=== PATIENT | female | born 1950 | race Caucasian/White ===

== ENCOUNTER 2023-02-14 10:27 | Outpatient (CLI) | payer MEDICARE, SELFPAY ==
--- NOTE | 2023-02-14 10:34 | MM_ITS ---
WS: [id number] BILATERAL SCREENING DIGITAL TOMOSYNTHESIS MAMMOGRAM WITH CAD HISTORY: SCREENING COMPARISON: None available. Bilateral CC and MLO views with tomosynthesis and synthetic mammography submitted. Computer aided det ection analyzed. Breast composition: There are scattered areas of fibroglandular density. No suspicious masses, microc alcifications or architectural distortion. Benign calcification upper outer quadrant RIGHT breast. IMPRESSION: MM/[place] [id number] BI-RADS: 2-Benign FOLLOW UP: 1 Year Follow-up
== END 2023-02-14 10:28 | disposition home or self-care (01) ==
PROVIDERS: PCP Family Medicine; Visit Provider Family Medicine
DX: Z12.31 Encounter for screening mammogram for malignant neoplasm of breast (principal)
CPT/HCPCS: 77063; 77067

== ENCOUNTER 2025-02-04 09:53 | Emergency (ER) | payer MEDICARE, SELFPAY ==
--- NOTE | 2025-02-04 09:57 | XR_ITS ---
WS: [id number] Portable AP upright chest, 02/04/2025 Clinical Data: weakness Comparison: None. Findings: No nodules, masses or effusions are seen. The heart is normal. The pulmonary vascularity is not increased. No pneumonia or pneumothorax is seen. XR/XR chest 1V portable [id number] Impression: Negative chest.
--- NOTE | 2025-02-04 09:57 | CT_ITS ---
WS: [id number] CT HEAD TECHNIQUE: Noncontrast CT of the head obtained from the skullbase to the vertex. CLINICAL INFORMATION: weakness COMPARISON: None. DLP: 1086.[address] scans at [facility] use at least one of these dose optimization techniques: automated exposure control; mA and/or kV adjustment per patient size (includes targeted exams where dose is matched to clinical indication); or iterative reconstruction. FINDINGS: No evidence of intracranial hemorrhage or mass effect. Ventricular system and basal cisterns are patent. Mild small vessel changes with moderate parenchymal volume loss. No extra-axial fluid collections. No evidence of mass or mass effect. Vascular calcification Mild mucosal thickening in the ethmoid air cells. Mastoid air cells are well aerated. CT/CT head wo con* [id number] IMPRESSION: 1. No evidence of intracranial hemorrhage or mass effect. 2. No acute intracranial findings.
--- NOTE | 2025-02-04 09:58 | ECG_ITS ---
[facility] Test Date: 2022-02-13 Pat Name: Becki Montes De Oca Department: Room: Gender: Female [employer]: : 1950 Requested By: Melissa Bejarano Order Number: [id number] Shay MD: Ernestine Wilson M.D. Measurements Intervals [place] Rate: 88 P: 64 WY: 182 QRS: 0 QRSD: 81 T: 69 QT: 369 QTc: 447 Interpretive Statements SINUS RHYTHM LOW QRS VOLTAGE IN PRECORDIAL LEADS [QRS DEFLECTION < 1.0 mV IN CHEST LEADS] PATTERN CONSISTENT WITH PULMONARY DISEASE No previous ECG available for comparison Electronically Signed On 02-04-2025 15:26:24 CDT by Ernestine Wilson M.D. [email or web address]
--- OUTSIDE RECORDS SUMMARY | 2025-02-04 09:58 | XMS_ITS | Patient Health Record ---
Author Organization [facility] Address [address] [facility] [id number] [place], [place] [id number] Care Team Providers Care C.O.D. Clerk Name Role Phone ROWETASHA Primary Care Provider Allergies Allergen (clinical drug ingredient) Drug/Non Drug Allergy documented on EMR Reaction Allergy Type Onset Date Status Information temporarily unavailable Morphine Sulfate Unknown Drug Allergy Active Reason For Referral No Information Medications Medication SIG (Take, Route, Frequency, Duration) Notes Start Date End Date Status Lisinopril-hydroCHLOROthiaz barbara 20-12.5 MG 1 tablet Orally Once a day; Duration: 90 days Active amLODIPine Besylate 5 MG 1 tablet Orally Once a day; Duration: 90 days 06/07/2022 Active Antacid 750 MG 1 tablet Orally Once a day Active Multivitamin Adult - 1 tablet Orally Onc e a day Active Aspirin 81 MG 1 tablet Orally Once a day; Duration: 90 days Active Rosuvastatin Calcium 10 MG 1 tablet Oral ly Once a day; Duration: 90 days Active Meclizine HCl 25 MG 1 tablet as needed O rally TID PRN dizziness; Duration: 30 days Active Amitriptyline HCl 10 MG 1 tablet at bedt stefan Orally Once a day; Duration: 90 day(s) 07/10/2022 Active Acetaminophen 325 MG 1 tablet as needed Orally once a day in the evening for breakthrough pain Active Famotidine 20 MG 1 tablet as needed O rally Once a day; Duration: 90 day(s) 07/10/2022 Active Immunizations Vaccine Route Administration Date Status Comme nts *COVID19* Moderna Covid 19 0.5 Vial [id number] box [id number] Unknown 05/12/2020 Administered *COVID19* Moderna Covid 19 0.5 Vial [id number] box [id number] Unknown 06/12/2020 Administered *COVID19* Moderna Covid 19 0.5 Vial [id number] box [id number] Unknown 02/15/2021 Administered *COVID19* Moderna Covid 19 0.5 Vial [id number] box [id number] Unknown 08/17/2021 Administered *PVT* FLULAVAL QIV [id number] IM Intramuscular 01/19/2020 Administered *PVT* FLUZONE HIG DOSE 65 AND UP B [id number] V [id number] Unknown 01/31/2021 Administered *PVT* Pneumococcal adult Pneumovax 23 [id number] Unknown 03/18/2016 Administered *PVT* Prevnar 13 [id number] IM Intramuscular 10/28/2019 Administered Patient tolerated well. Inactive Unknown 01/21/2017 Administered Inactive Unknown 02/11/2018 Administered Social History Tobacco Use: Social History Observation Description Date Details (start date - stop date) Former Smoker NA - NA Tobacco Use: Question Answer Notes Are you a: former smoker How long has it been since y ou last smoked? > 10 years Additional Findings: Tobacco User Light cigarett e smoker ((1-9 cigs/day) Additional Findings: Tobacco Non-User Ex-light c igarette smoker (1-9/day) Sexual Hx: Question Answer Notes Had sex in the last 12 months (vaginal, oral, or anal)? No Have you ever had an STD? No Alcohol Screening: Question Answer Notes Did you have a drink containing alcohol in the p ast year? No Points 0 Interpretation Negative Section Notes: former smoker; no alcohol; n o travel former smoker; no alcohol; n o travel former smoker; no alcohol; n o travel former smoker; no alcohol; n o travel former smoker; no alcohol; n o travel former smoker; no alcohol; n o travel former smoker; no alcohol; n o travel former smoker; no alcohol; n o travel Problems Problem Type SNOMED Code ICD Code Onset Dates Problem Status W/U Status Risk Notes Problem Information temporarily unavailable Essential (primary) hypertension (I10) Active confirmed Problem Information temporarily unavailable Other obesity due to excess calories (E66.09) Active confirmed Problem Information temporarily unavailable Acquired absence of both cervix and uterus (Z90.710) Active confirmed Problem Information temporarily unavailable Other obesity (E66.8) Active confirmed Problem Information temporarily unavailable Gastro-esophageal reflux disease without esophagitis (K21.9) Active confirmed Problem Information temporarily unavailable Arthritis (M19.90) Active confirmed Problem Information temporarily unavailable Leukocytosis, unspecified (D72.829) Active confirmed Problem Information temporarily unavailable BMI 37.0-37.9, adult (Z68.37) Active confirmed Problem Information temporarily unavailable BMI 36.0-36.9,adult (Z68.36) Active confirmed Problem Information temporarily unavailable Other hyperlipidemia (E78.49) Active confirmed Plan Of Treatment No Information Insurance Providers Payer Name Payer Address Payer Phone Subscriber Number Group Number Insured Name Patient Relationship to Insured Coverage Start Date Coverage End Date [employer] MED[employer]ARE [address] [place] [phone] [id number] ANA AGUILERA Self - patient is the insured Medical (General) History Medical History History ICD Code Hypertension Hyperlipidemia Seasonal allergies Cervical cancer Surgical History Surgery Date(Month/Year) Tonsillectomy 1965 TOTAL HYSTERECTOMY 1988 Hospitalization History Reason Date(Month/Year) Surgery Above
--- OUTSIDE RECORDS SUMMARY | 2025-02-04 09:58 | XMS_ITS | Data Portability ---
Author Organization [facility] Raimundo Fontana [facility] Gunjan Coronado [facility] Address [address] [address] Assessment Encounter Date Assessment Date Assessment LastModified by Organization Details LastModified Time 01/27/2023 01/27/2023 We will proceed with lab work today. Discussed other preventative health care evaluations and will schedule the patient for mammogram and order the Cologuard. Claude healthy lifestyle including diet and exercise recommendations . Flu shot provided today. [email or web address] Not available 01/28/2023 08:42:59 03/10/2024 03/10/2024 no charge visit. Pt presented with broken dentures and wanted them fixed. directed pt to dental clinic. [email or web address] Not available 03/10/2024 09:30:50 11/29/2024 11/29/2024 We will check routine labs today [email or web address] Not available 12/05/2024 10:26:39 Plan of Treatment Reminders Order Date Submit Date Provider Last Modified By Organization Details Last Modified Time Details Appointments 15 ANNUAL 2025 08:00A Deloris Salinas MD Not available Not available Not available Lab CMP, serum or plasma 2024 025 MILTON [facility], [address], [address], [place], [address], 11/29/2024 13:45:15 lipid panel, blood 2024 025 [facility], [address] [facility] [address], [place], [address], 11/29/2024 13:45:18 CBC 2024 025 [facility], [address], [address], [place], [address], 11/29/2024 13:09:41 CMP, serum or plasma 2022 023 [facility], [address], [address], [place], [address], 01/27/2023 16:37:38 lipid panel, blood 2022 023 [facility], [address], [address], [place], [address], 01/27/2023 16:00:37 CBC 2022 023 [facility], [address], [address], [place], [address], 01/27/2023 15:20:18 noninvasi ve colorecta l cancer DNA + occult blood screening , QL, stool 2022 023 [facility], [address], [address], [place], [address], 02/10/2023 02:36:[address] referral 2023 024 [email or web address] Not available 04/23/2023 14:30:18 otolaryng ologist referral 2023 024 [email or web address] Chu Awad MD, [address], [place], [address], 05/07/2023 14:32:00 Procedures None recorded. Surgeries None recorded. Imaging MAMMO, screening , tomosynth esis, bilateral 2022 023 [facility] (Scheduling Orders), [address], [place], [address], 02/05/2023 15:42:44 Medication Orders omeprazol e 20 mg capsule,d elayed release [address] [facility] #[id number], [address], [address], [place], [address], 08/26/2023 11:38:50 Patient TargetsNo targets recorded. Patient InstructionsNo instructions recorded. 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 Referral fo r Bilateral tinnitus Referring Physician: Booker Salinas [facility] Medicine, Encounter Date: 04/21/2023 Results Created Date Observation Date Name Description Value Unit Range Abnormal Flag Note LastModifiedBy Organization Detail LastModifiedTime 01/28/2001/27/2023 CBC WBC 10.7 x10 4.0-10 .5 high Not Available [facility] [address] [address], [place], [address], 01/27/2023 15:20:18 01/28/2001/27/2023 CBC RBC 3.74 x10 3.50-5 .50 Not Available [facility] [address] [address], [place], [address], 01/27/2023 15:20:18 01/28/2001/27/2023 CBC HGB 11.4 g/dL 12.0-1 6.0 low Not Available [facility] [address], [place], [address], 01/27/2023 15:20:18 01/28/2001/27/2023 CBC HCT 33.1 % 37.0-4 7.0 low Not Available [facility] [address], [place], [address], 01/27/2023 15:20:18 01/28/2001/27/2023 CBC MCV 88.6 fL 80.0-9 9.9 Not Available [facility] [address] [facility] [address] [facility], [place], [address], 01/27/2023 15:20:18 01/28/20 23 01/27/2023 CBC MCH 30.5 pg 27.0-3 2.0 Not Available [facility] [address] [facility] [address] [facility], [place], [address], 01/27/2023 15:20:18 01/28/20 23 01/27/2023 CBC MCHC 34.5 g/dL 32.0-3 6.0 Not Available [facility] [address] [facility] [address] [facility], [place], [address], 01/27/2023 15:20:18 01/28/20 23 01/27/2023 CBC RDW 14.6 % 11.5-1 4.6 Not Available [facility] [address] [facility] [address] [facility], [place], [address], 01/27/2023 15:20:18 01/28/20 23 01/27/2023 CBC plt 371.0 x10 140.0- 451.0 Not Available [facility] [address] [facility] [address] [facility], [place], [address], 01/27/2023 15:20:18 01/28/2001/27/2023 CBC lymphocytes % 18.4 % 20.0-5 0.0 low Not Available [facility] [address] [facility], [place], [address], 01/27/2023 15:20:18 01/28/20 23 01/27/2023 CBC granulcytes % 72.3 % 30.0-7 0.0 high Not Available [facility] [address] [facility] [address] [facility], [place], [address], 01/27/2023 15:20:18 01/28/20 23 01/27/2023 CBC monocytes % 6.4 % 2.0-10 .0 Not Available [facility] [address] [facility] [address], [place], [address], 01/27/2023 15:20:18 01/28/20 23 01/27/2023 CBC granulcytes# 7.8 x10 Not Prabha ilable [facility] [address] [facility] [address], [place], [address], 01/27/2023 15:20:18 01/28/20 23 01/27/2023 CBC lymphocytes # 2.0 x10 Not Available [facility] [address] [facility] [address], [place], [address], 01/27/2023 15:20:18 01/28/20 23 01/27/2023 CBC monocytes # 0.7 x10 Not Avai lable [facility] [address] [facility] [address], [place], [address], 01/27/2023 15:20:18 01/28/20 23 01/27/2023 LIPID PROFI LE (FEMA LE) cholesterol 101.0 mg/dL 0.0-20 0.0 Not Available [facility] [address] [facility] [address], [place], [address], 01/27/2023 16:00:36 01/28/20 23 01/27/2023 LIPID PROFI LE (FEMA LE) trig 118.0 mg/dL 0.0-15 0.0 Not Available [facility] [address] [facility] [address], [place], [address], 01/27/2023 16:00:36 01/28/20 23 01/27/2023 LIPID PROFI LE (FEMA LE) HDL - direct 34.0 mg/dL >40.0 low Not Available [facility] [address] [facility] [address], [place], [address], 01/27/2023 16:00:36 01/28/20 23 01/27/2023 LIPID PROFI LE (FEMA LE) VLDL - direct 23.6 mg/dL Not Available [facility] [address] [facility] [address], [place], [address], 01/27/2023 16:00:36 01/28/20 23 01/27/2023 LIPID PROFI LE (FEMA LE) LDL - direct 43.4 mg/dL 0.0-13 0.0 Not Available [facility] [address] [facility] [address], [place], [address], 01/27/2023 16:00:36 01/28/20 23 01/27/2023 CMP (FEMA LE) glucose 118.0 mg/dL 60.0-9 9.0 high Not Available [facility] [address] [facility] [address], [place], [address], 01/27/2023 16:37:37 01/28/20 23 01/27/2023 CMP (FEMA LE) BUN (blood urea nitrogen) 8.0 mg/dL 10.0-2 6.0 low Not Available [facility] [address] [facility] [address], [place], [address], 01/27/2023 16:37:37 01/28/20 23 01/27/2023 CMP (FEMA LE) creatinine (serum) 0.9 mg/dL 0.4-1. 5 Not Available [facility] [address] [facility] [address], [place], [address], 01/27/2023 16:37:37 01/28/20 23 01/27/2023 CMP (FEMA LE) BUN/creatini ne ratio 8.89 ratio Not Available [facility] [address] [facility] [address], [place], [address], 01/27/2023 16:37:37 01/28/2001/27/2023 CMP (FEMA LE) eGFR calculated 65.4 Not Available [facility] [address] [facility] [address], [place], [address], 01/27/2023 16:37:37 01/28/2001/27/2023 CMP (FEMA LE) total protein 7.4 g/dL 6.0-8. 5 Not Available [facility] [address], [place], [address], 01/27/2023 16:37:37 01/28/2001/27/2023 CMP (FEMA LE) total bilirubin 0.5 mg/dL 0.2-1. 3 Not Available [facility] [address] [facility], [place], [address], 01/27/2023 16:37:37 01/28/2001/27/2023 CMP (FEMA LE) albumin 4.6 g/dL 3.5-5. 5 Not Available [facility] [address] [facility] [address] [facility], [place], [address], 01/27/2023 16:37:37 01/28/2001/27/2023 CMP (FEMA LE) globulin 2.8 calc Not Available [facility] [address] [facility], [place], [address], 01/27/2023 16:37:37 01/28/2001/27/2023 CMP (FEMA LE) AST (SGOT) 36.0 U/L 0.0-46 .0 Not Available [facility] [address] [facility] [facility], [place], [address], 01/27/2023 16:37:37 01/28/20 01/27/2023 CMP (FEMA LE) altv (SGPT) 21.0 U/L 13.0-6 9.0 normal Not Available [facility] [address] [facility] [address], [place], [address], 01/27/2023 16:37:37 01/28/20 23 01/27/2023 CMP (FEMA LE) A/G ratio 1.6 ratio Not Available [facility] [address] [facility] [address], [place], [address], 01/27/2023 16:37:37 01/28/2001/27/2023 CMP (FEMA LE) ALP phos 90.0 U/L 30.0-1 40.0 normal Not Available [facility] [address] [facility] [address], [place], [address], 01/27/2023 16:37:37 01/28/20 23 01/27/2023 CMP (FEMA LE) calcium 8.9 mg/dL 8.4-10 .5 Not Available [facility] [address] [facility] [address], [place], [address], 01/27/2023 16:37:37 01/28/20 23 01/27/2023 CMP (FEMA LE) sodium 129.0 mmol/ L 136.0- 145.0 low Not Available [facility] [address] [facility] [address], [place], [address], 01/27/2023 16:37:37 01/28/2001/27/2023 CMP (FEMA LE) potassium 4.1 mmol/ L 3.5-5. 1 Not Available [facility] [address] [facility] [address], [place], [address], 01/27/2023 16:37:37 01/28/20 23 01/27/2023 CMP (FEMA LE) chloride 93.0 mmol/ L 98.0-1 10.0 abnormal Not Available [facility] [address] [facility] [address], [place], [address], 01/27/2023 16:37:37 01/28/2001/27/2023 CMP (FEMA LE) C02 24.0 mmol/ L 22.0-3 1.0 Not Available [facility] [address] [facility] [address], [place], [address], 01/27/2023 16:37:37 01/28/2001/27/2023 CMP (FEMA LE) anion gap 12.0 calc Not Available [facility] [address] [facility] [address], [place], [address], 01/27/2023 16:37:37 01/28/2001/27/2023 CMP (FEMA LE) osmolality 266.6 calc Not Available [facility] [address] [facility] [address], [place], [address], 01/27/2023 16:37:37 02/04/2002/03/2023 COLOG UARD cologuard result reportable Negati ve negati ve normal NEGAT MANOLO TEST RESUL T. A negat manolo Colog uard resul t indic ates a low likel ihood that a color ectal cance r (CRC) or advan nahid adeno ma (anival omato us polyp s with more advan nahid pre-m align ant featu res) is prese nt. The chanc e that a perso n with a negat manolo Colog uard test has a color ectal cance r is less than 1 in 1500 (nega tive predi ctive value >99.9 %) or has an advan nahid adeno ma is less than 5.3% (nega tive predi ctive value 94.7% ). These data are based on a prosp ectiv e cross -sect ional study of 10,00 0 indiv idual s at [facility] risk for color ectal cance r who were scree kirk with both Colog uard and colon oscop y. (Kaileye jaylan T. et al, N Engl J Med 2014; 370(1 4):12 86-12 97) The yang l value (refe rence range ) for this assay is negat manolo. COLOG UARD RE-SC REENI NG RECOM MENDA TION: Perio dic color ectal cance r scree maximilian is an impor tant part of preve ntive healt hcare for asymp tomat ic indiv idual s at [facility] risk for color ectal cance r. Follo wing a negat manolo Colog uard resul t, the Ameri can Cance r Socie ty and U.S. Multi -Soci ety Task Force scree maximilian guide lines recom mend a Colog uard re-sc reeni ng inter daniel of 3 years . Refer ences : Ameri can Cance r Socie ty Guide line for Color ectal Cance r Scree maximilian: https ://geneva w.can cer.o rg/ca ncer/ colon -rect al-ca ncer/ detec tion- diagn osis- stagi ng/ac s-rec ommen datio ns.ht ml.; Sander ZAMBRANO, Froylan gomes CR, Reyna WATERMAN, Color ectal Cance r Scree maximilian: Recom menda tions for Physi cians and Patie nts from the U.S. Multi -Soci ety Task Force on Color ectal Cance r Scree maximilian , Am Carlito ayala y 2017; 112:1 016-1 030. TEST DESCR IPTIO N: [place] site algor ithmi c yayo sis of stool DNA-b iomar kers with hemog lobin immun oassa y. Quant itati ve value s of indiv idual bioma rkers are not repor table and are not assoc iated with indiv idual bioma rker resul t refer ence range s. Colog uard is inten ded for color ectal cance r scree maximilian of adult s of eithe r sex, 45 years or older , who are at [facility] sk for color ectal cance r (CRC) . Colog uard has been appro lawrence for use by the [place]. FDA. The perfo rmanc e of Colog uard was estab lishe d in a cross secti onal study of [facility] adult s aged 50-84 . Colog uard perfo rmanc e in patie nts ages 45 to 49 years was estim ated by sub-g roup yayo sis of near- age group s. Colon oscop ies perfo rmed for a posit manolo resul t may find as the most clini naina signi fican t lesio n: color ectal cance r [4.0% ], advan nahid adeno ma (incl uding sessi le catie salvador polyp s great er than or equal to 1cm diame ter) [20%] or non- advan nahid adeno ma [31%] ; or no color ectal neopl finesse [45%] . These estim ates are deriv ed from a prosp ectiv e cross -sect ional scree maximilian study of 0 indiv idual s at [facility] risk for color ectal cance r who were scree kirk with both Colog uard and colon oscop y. (Thelma Crane et al, N Engl J Med 2014; 370(1 4):12 86-12 97.) Colog uard may produ ce a false negat manolo or false posit manolo resul t (no color ectal cance r or preca ncero us polyp prese nt at colon oscop y follo w up). A negat manolo Colog uard test resul t does not guara ntee the absen ce of CRC or advan nahid adeno ma (pre- cance r). The curre nt Colog uard scree maximilian inter daniel is every 3 years . (Amer ican Cance r Socie ty and U.S. Multi -Soci ety Task Force ). Colog uard perfo rmanc e data in a 0 patie nt pivot al study using colon oscop y as the refer ence metho d can be acces sed at the follo wing locat ion: www.e xactl abs.c om/re sulchris . Addit ional descr iptio n of the Colog uard test proce ss, warni ngs and preca ution s can be found at www.maryjane morales.maryjane om. Not Available [facility] [address], [place], [address], 02/10/2023 02:36:25 11/30/19 25 11/29/2024 CBC WBC 10.0 x10 4.0-10 .5 Not Available [facility] [address] [facility] [address], [place], [address], 11/29/2024 13:09:41 11/30/19 25 11/29/2024 CBC RBC 3.90 x10 3.50-5 .50 Not Available [facility] [address] [facility] [address] [facility], [place], [address], 11/29/2024 13:09:41 11/30/19 25 11/29/2024 CBC HGB 11.4 g/dL 12.0-1 6.0 low Not Available [facility] [address] [facility] [address] [facility], [place], [address], 11/29/2024 13:09:41 11/30/19 25 11/29/2024 CBC HCT 35.8 % 37.0-4 7.0 low Not Available [facility] [address] [facility] [address] [facility], [place], [address], 11/29/2024 13:09:41 11/30/19 25 11/29/2024 CBC MCV 91.7 fL 80.0-9 9.9 Not Available [facility] [address] [facility] [address] [facility], [place], [address], 11/29/2024 13:09:41 11/30/19 25 11/29/2024 CBC MCH 29.3 pg 27.0-3 2.0 Not Available [facility] [address] [facility] [address] [facility], [place], [address], 11/29/2024 13:09:41 11/30/19 25 11/29/2024 CBC MCHC 32.0 g/dL 32.0-3 6.0 Not Available [facility] [address] [facility] [address] [facility], [place], [address], 11/29/2024 13:09:41 11/30/19 25 11/29/2024 CBC RDW 14.4 % 11.5-1 4.5 Not Available [facility] [address] [facility] [address] [facility], [place], [address], 11/29/2024 13:09:41 11/30/19 25 11/29/2024 CBC plt 395.2 x10 140.0- 451.0 Not Available [facility] [address] [facility], [place], [address], 11/29/2024 13:09:41 11/30/19 25 11/29/2024 CBC lymphocytes % 17.5 % 20.0-5 0.0 low Not Available [facility] [address] [facility], [place], [address], 11/29/2024 13:09:41 11/30/19 25 11/29/2024 CBC granulcytes % 73.9 % 30.0-7 0.0 high Not Available [facility] [address] [facility], [place], [address], 11/29/2024 13:09:41 11/30/19 25 11/29/2024 CBC monocytes % 7.0 % 2.0-16 .0 Not Available [facility] [address] [facility], [place], [address], 11/29/2024 13:09:41 11/30/19 25 11/29/2024 CBC granulcytes# 7.4 x10 Not Prabha ilable [facility] [address] [facility] [address], [place], [address], 11/29/2024 13:09:41 11/30/19 25 11/29/2024 CBC lymphocytes # 1.7 x10 Not Available [facility] [address] [facility] [address], [place], [address], 11/29/2024 13:09:41 11/30/19 25 11/29/2024 CBC monocytes # 0.7 x10 Not Avai lable [facility] [address] [facility], [place], [address], 11/29/2024 13:09:41 11/30/19 25 11/29/2024 CMP (FEMA LE) glucose 105.0 mg/dL 60.0-9 9.0 high Not Available [facility] [address] [facility] [address] [address], [place], [address], 11/29/2024 13:45:15 11/30/19 25 11/29/2024 CMP (FEMA LE) BUN (blood urea nitrogen) 17.0 mg/dL 10.0-2 6.0 Not Available [facility] [address] [address], [place], [address], 11/29/2024 13:45:15 11/30/19 25 11/29/2024 CMP (FEMA LE) creatinine (serum) 1.1 mg/dL 0.4-1. 5 Not Available [facility] [address] [address], [place], [address], 11/29/2024 13:45:15 11/30/19 25 11/29/2024 CMP (FEMA LE) BUN/creatini ne ratio 15.45 ratio Not Available [facility] [address] [address], [place], [address], 11/29/2024 13:45:15 11/30/19 25 11/29/2024 CMP (FEMA LE) eGFR calculated 51.6 Not Available [facility] [address] [facility], [place], [address], 11/29/2024 13:45:15 11/30/19 25 11/29/2024 CMP (FEMA LE) total protein 7.0 g/dL 6.0-8. 5 Not Available [facility] [address] [facility], [place], [address], 11/29/2024 13:45:15 11/30/19 25 11/29/2024 CMP (FEMA LE) total bilirubin 0.5 mg/dL 0.2-1. 3 Not Available [facility] [address] [facility] [address], [place], [address], 11/29/2024 13:45:15 11/30/19 25 11/29/2024 CMP (FEMA LE) albumin 3.8 g/dL 3.5-5. 5 Not Available [facility] [address] [facility] [address], [place], [address], 11/29/2024 13:45:15 11/30/19 25 11/29/2024 CMP (FEMA LE) globulin 3.2 calc Not Available [facility] [address] [facility], [place], [address], 11/29/2024 13:45:15 11/30/19 25 11/29/2024 CMP (FEMA LE) AST (SGOT) 40.0 U/L 0.0-46 .0 Not Available [facility] [address] [facility] [address], [place], [address], 11/29/2024 13:45:15 11/30/19 25 11/29/2024 CMP (FEMA LE) altv (SGPT) 22.0 U/L 13.0-6 9.0 normal Not Available [facility] [address] [facility] [address] [facility], [place], [address], 11/29/2024 13:45:15 11/30/19 25 11/29/2024 CMP (FEMA LE) A/G ratio 1.2 ratio Not Available [facility] [address] [facility] [address], [place], [address], 11/29/2024 13:45:15 11/30/19 25 11/29/2024 CMP (FEMA LE) ALP phos 121.0 U/L 30.0-1 40.0 normal Not Available [facility] [address] [facility], [place], [address], 11/29/2024 13:45:15 11/30/19 25 11/29/2024 CMP (FEMA LE) calcium 9.0 mg/dL 8.4-10 .5 Not Available [facility] [address] [facility] [address], [place], [address], 11/29/2024 13:45:15 11/30/19 25 11/29/2024 CMP (FEMA LE) sodium 136.0 mmol/ L 136.0- 145.0 Not Available [facility] [address] [facility] [address], [place], [address], 11/29/2024 13:45:15 11/30/19 25 11/29/2024 CMP (FEMA LE) potassium 4.1 mmol/ L 3.5-5. 1 Not Available [facility] [address] [facility] [address], [place], [address], 11/29/2024 13:45:15 11/30/19 25 11/29/2024 CMP (FEMA LE) chloride 100.0 mmol/ L 98.0-1 10.0 normal Not Available [facility] [address] [facility], [place], [address], 11/29/2024 13:45:15 11/30/19 25 11/29/2024 CMP (FEMA LE) C02 28.0 mmol/ L 22.0-3 1.0 Not Available [facility] [address] [facility], [place], [address], 11/29/2024 13:45:15 11/30/19 25 11/29/2024 CMP (FEMA LE) anion gap 8.0 calc Not Available [facility] [address] [facility] [address], [place], [address], 11/29/2024 13:45:15 11/30/19 25 11/29/2024 CMP (FEMA LE) osmolality 282.9 calc Not Available [facility] [address] [facility] [address], [place], [address], 11/29/2024 13:45:15 11/30/19 25 11/29/2024 LIPID PROFI LE (FEMA LE) cholesterol 133.0 mg/dL 0.0-20 0.0 Not Available [facility] [address] [facility] [address], [place], [address], 11/29/2024 13:45:18 11/30/19 25 11/29/2024 LIPID PROFI LE (FEMA LE) trig 103.0 mg/dL 0.0-15 0.0 Not Available [facility] [address] [facility] [address], [place], [address], 11/29/2024 13:45:18 11/30/19 25 11/29/2024 LIPID PROFI LE (FEMA LE) HDL - direct 52.0 mg/dL >40.0 Not Available [facility] [address] [facility] [address], [place], [address], 11/29/2024 13:45:18 11/30/19 25 11/29/2024 LIPID PROFI LE (FEMA LE) VLDL - direct 20.6 mg/dL Not Available [facility] [address], [place], [address], 11/29/2024 13:45:18 11/30/19 25 11/29/2024 LIPID PROFI LE (FEMA LE) LDL - direct 60.4 mg/dL 0.0-13 0.0 Not Available [facility] [address], [place], [address], 11/29/2024 13:45:18 02/15/20 23 02/14/2023 MAMMO , scree maximilian, tomos ynthe sis, bilat eral No observ ation record ed. [facility] [address] [place], [address], 02/17/2023 09:11:43 Result Notes None recorded. Problems Name Problem SNOMED Code Status Onset Date Resolution Date Notes Provider Name and Address Organization Details Recorded Time Essential hypertensi on 88579666 Active 2022 Not Available [facility] 4 08:46:13 Hyperchole sterolemia 23214768 Active 2023 Not Available [facility] 08:46:13 Bilateral tinnitus 9485804262035 Active 2023 Not Available [facility] 4 08:46:13 Gastroesop hageal reflux disease 092098793 Active 2023 Booker Salinas MD [address] [place], [address] , [facility] 4 11:34:35 Disorder of cardiovasc ular system 83394971 Active 2024 Booker Salinas MD [address] [place], [address] , [facility] 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 Procedures Surgical History Date Name Laterality Status Provider Name and Address Organization Details Recorded Time 06/10/19 [facility] 14:14[facility]45 [facility] 14:02:27 [facility] 14:02:42 Imaging Results None recorded. Procedure Notes None recorded. Medical Equipment None Reported. Allergies No known drug allergies Medications Name Sig Start Date Stop Date Status Note LastModified by Organization Details LastModified Time lisinopril 20 mg-hydrochlo rothiazide 12.5 mg tablet TAKE 1 TABLET BY MOUTH EVERY DAY active Not Available Not Available No t Available meloxicam 15 mg tablet TAKE 1 TABLET BY MOUTH EVERY DAY 2024 active Not Available Not Available Not Avai lable omeprazole 20 mg capsule,jacque yed release TAKE 1 CAPSULE BY MOUTH EVERY DAY active Not Available Not Available No t Available Low Dose Aspirin 81 mg tablet,delay ed release Take 1 tablet every day by oral route. active Not Available Not Available No t Available rosuvastatin 10 mg tablet TAKE 1 TABLET BY MOUTH EVERY DAY 2024 active Not Available Not Available Not Avai lable One-A-Day Womens Formula 18 mg iron-400 mcg-500 mg tablet Take 1 tablet every day by oral route. active Not Available Not Available No t Available ICaps AREDS2 take 2 tabs every day 08/25 completed Not Available Not Available Not Available Vitals Date Recorded Respiratory rate Body height Body mass index (BMI) Body weight Body temperature Heart rate Oxygen saturation Oxygen saturation in Arterial blood by Pulse oximetry Systolic And Diastolic Provider Name and Address Organization Details Last Updated DateTime 4 20 /min 154.94 cm 34.1 kg/m2 36931.0 3 g 97.4 [degF] 86 /min 98 % 98 % 150/86 mm[Hg] DIANA MARTELL [facility] 4 10:20:34 Date Recorded Body height Respiratory rate Body mass index (BMI) Body weight Body temperature Heart rate Oxygen saturation Oxygen saturation in Arterial blood by Pulse oximetry Systolic And Diastolic Provider Name and Address Organization Details Last Updated DateTime 4 154.94 cm 20 /min 32.9 kg/m2 45634.0 7 g 97 [degF] 72 /min 94 % 94 % 120/70 mm[Hg] DIANA MARTELL [facility]el 4 11:13:19 Date Recorded Body height Body mass index (BMI) Body weight Oxygen saturation Oxygen saturation in Arterial blood by Pulse oximetry Heart rate Respiratory rate Body temperature Systolic And Diastolic Provider Name and Address Organization Details Last Updated DateTime 5 154.94 cm 32.1 kg/m2 50613.9 8 g 99 % 99 % 99 /min 18 /min 96.9 [degF] 106/60 mm[Hg] Lita Rosendo [facility]anel 5 10:50:37 Date Recorded Respiratory rate Body temperature Heart rate Oxygen saturation Oxygen saturation in Arterial blood by Pulse oximetry Systolic And Diastolic Provider Name and Address Organization Details Last Updated DateTime 3 20 /min 97.5 [degF] 72 /min 99 % 99 % 120/82 mm[Hg] DIANA MARTELL [facility]el 3 14:02:15 Social History Question Answer Notes LastModified by Organizat ion Details LastModified Time Tobacco Smoking Status Former Smoker DIANA shaffer [facility] 01/27/2023 14:03:52 Do You Have An Advance Directive? No Information not available 01/27/2023 Do You Wear A Helmet When Biking? No Information not available 01/27/2023 Are You Blind Or Do You Have Difficulty Seeing? No Information not available 01/27/2023 What Is Your Level Of Caffeine Consumption? Moderate Information not available 01/27/2023 Are You Deaf Or Do You Have Serious Difficulty Hearing? No Information not available 01/27/2023 What Type Of Diet Are You Following? REGULAR Information not available 01/27/2023 What Is The Highest Grade Or Level Of School You Have Completed Or The Highest Degree You Have Received? [id number] Information not available 01/27/2023 When Did You Quit Smoking? 16+yearssince theodore [id number] Information not available 11/29/2024 Which Of Your Hands Is Dominant? Right Information not available 01/27/2023 Do You Use Your Seat Belt Or Car Seat Routinely? Yes Information not available 01/27/2023 Do You Participate In Social Media? No Information not available 01/27/2023 Have You Recently Traveled Abroad? No Information not available 01/27/2023 Do You Have Difficulty Walking Or Climbing Stairs? No Information not available 01/27/2023 Are You Currently In School? No Information not available 01/27/2023 Do You Have Any Dietary Restrictions? No Information not available 01/27/2023 Sex: Unknown Functional Status Question Answer Note LastModified by Organizat ion Details LastModified Time Do you use any illicit or recreational drugs? No Information not available 01/27/2023 What is your level of alcohol consumption? None Information not available 01/27/2023 Are you currently employed? No Information not available 01/27/2023 Do you have transportation difficulties? Yes Information not available 01/27/2023 Are you able to walk independently without assistance or assistive devices? YESWOREST Information not available 01/27/2023 Do you have difficulty doing errands alone? No Information not available 01/27/2023 Are you able to care for yourself independently? Yes Information not available 01/27/2023 Do you have difficulty dressing, bathing, grooming, or toileting? No Information not available 01/27/2023 What is your exercise level? None Information not available 01/27/2023 Mental Status Question Answer Note LastModified by Organization D etails LastModified Time Do you have difficulty concentrating, remembering or making decisions? No Information no t available 01/27/2023 Family History Nothing Reported. Medical History No medical history recorded. Gynecological HistoryNo gynecological history recorded. Obstetrics History GPAL:G 0 P 0 0 0 0 Immunizations Vaccine Type Date Status Note Provider Nam e and Address Organization Details Recorded Time COVID-19, mRNA, LNP-S, PF, 50 mcg/0.5 mL 02/18/2023 completed Not Available [facility] 5 10:15:57 Influenza, adjuvanted, quadrivalent, PF 02/18/2023 completed Not Available [facility] 5 10:15:57 RSV, recombinant, protein subunit RSVpreF, adjuvant reconstituted, 0.5 mL, PF 04/25/2023 completed Not Available [facility] 5 10:15:57 COVID-19, mRNA, LNP-S, PF, 50 mcg/0.5 mL 12/26/2023 completed Not Available [facility] 5 10:15:57 Influenza, adjuvanted, quadrivalent, PF 01/27/2023 completed Booker Salinas MD [address] [place] [address], [phone], [facility] 01/28/2023 08:41:18 Past Encounters Encounter ID Performer Location Encounter Start Date Encounter Closed Date Diagnosis/Indication Diagnosis SNOMED-CT Code Diagnosis ICD10 Code Diagnosis IMO Codes Diagnosis Note [id number] Booker Salinas MD [facility] ([facility]) [address] [place] [phone] 01/27/2023 13:36:53 01/27/2023 15:32:42 Active or passive immunization 802162110 Z23 Screening for malignant neoplasm of breast 111764042 Z12.39 Screening for malignant neoplasm of colon 048667920 Z12.11 Essential hypertension 50563765 I10 Adult heal th examination 027949823 Z00.00 [id number] Booker Salinas MD [facility] ([facility]) [address] [place] [id number] 04/21/2023 10:04:34 04/21/2023 12:12:50 Bilateral tinnitus 5684667915 102 H93.13 likely related to hearing loss. We will send referral to audiology and ENT giving her overall concerns. Essential hypertension 92213945 I10 Hypercholesterolemia 136 69163 E78.00 [id number] Booker Salinas MD [facility] ([facility]) [address] [place] [id number] 08/26/2023 11:02:56 08/26/2023 11:51:05 Gastroesophageal reflux disease 486321731 K21.9 Reflux may be contributi ng to the patient's symptoms. Recommend starting daily medication to help control symptoms better. Follow-up if symptoms do not improve. Bilateral tinnitus 40252 31271 102 H93.13 No improvemen t with hearing aids. No obvious medication s that would be contributi ng to the patient's symptoms. Encouraged the patient to bring the issue up with ENT at follow-up next week. [id number] ANATOLIY BOCANEGRA [facility] ([facility]) [address] [place] [phone] 03/10/2024 09:23:28 03/10/2024 09:31:03 [id number] Booker Salinas MD [facility] ([facility]) [address] [place] [phone] 11/29/2024 10:14:07 11/29/2024 11:40:47 Gastroesophageal reflux disease 217235455 K21.9 Continue omeprazole Memory impairment 504990 006 R41.3 069118 Slums test performed today and she scored a 14 and this is consistent with dementia. Screening for cardiovascular system disease 117824796 Z13.6 340568 Essential hypertension 49557217 I10 Continue current blood pressure management . Hypercholesterolemia 136 33793 E78.00 Tolerating statin. 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 Discussed interventi ons including medication s and they did not wish to risk the side effects. Education and guidance provided about the diagnosis. Health Concerns Section Related Observation LastModified by Organization Detai ls LastModified Time None Recorded Concern Status LastModified by Organization Details LastModified Time None Recorded Advance Directives Directive N: Payers Insurance Date Sequence Insurance Name Policy Number Policy [place] Covered Member ID [place] Member ID Guarantor Name 12/06/2024 1 DANNI (MEDICARE REPLACEMENT/A DVANTAGE - PPO) Becki Montes De Oca [id number] Becki Montes De Oca Notes Date Note Type Note Provider Name and Address Organization Details Recorded Time 01/27/2023 text/html This is a 72-year-old female that comes in today to establish care. Patient has a history of high blood pressure that is currently controlled on current medications. His cholesterol has been elevated in the past and she takes Crestor for this. Hinojosa patient has a history of osteoarthritis and takes as needed meloxicam. Patient states has been over a year since he has had lab work and health maintenance exam. Patient is overdue for mammogram and states that it is time for her Cologuard. Booker Salinas MD [address] [place] [address], [phone], [facility] 01/28/2023 08:43:30 04/21/2023 text/html ROS as noted in the HPI This is a 72-year-old female that comes in today with ringing in both her ears. Has had some mild hearing loss. Patient denies any other symptoms. Patient has not had any headaches or vision changes. Patient denies any focal neurological deficits. Patient does report that she has been having drooling issues Booker Salinas MD [address] [place] [address], [phone], [facility] 04/22/2023 09:41:32 08/26/2023 text/html Is a 72-year-old female that comes in today for evaluation. Patient states that she has been having increased burning and is utilizing Tums almost daily. Send the patient was also noticed increased drooling especially at night. Patient continues to struggle with tinnitus despite hearing aids. Patient does have follow-up with ENT next week. Booker Salinas MD [address] [place] [address], [phone], [facility], LShanelLErin. 08/26/2023 12:03:44 11/29/2024 text/html Annual WellnessReported by PatientSocial/Behavior al HistoryFor fracture risk, patient reportsno history of fractures. For physical activity, patient reportsexercises on a regular basisandgood physical condition. For additional lifestyle factors, patient reportsno tobacco useandno alcohol intake. For diet and nutrition, (a lot of processed food and dr. lewis).Mental Status:For depression risk, patient reportssleep disturbances or insomniaandloss of energybut reportsnever feels sad, empty, or tearful,no loss of interest in activities,no significant changes in weight,no agitation,no feelings of worthlessness or guilt,no thoughts of suicide,no history of depression, andno history of mood disorders(trouble falling to sleep).Functional AbilityFor hearing, (wears hearing aids). For vision, (wears glasses). This is a 74-year-old female comes in today for annual physical. Patient reports that her health is doing well and she is tolerating medications without significant side effects. Her son comes in today with her and expresses significant concerns with her memory. The patient has gotten lost in common areas. The son has significant concerns about dementia and would like her tested today. Booker Salinas MD [address] [place] [address], [phone], [facility] 12/05/2024 10:27:28 OBGyn Episode No OBEpisode recorded.
--- OUTSIDE RECORDS SUMMARY | 2025-02-04 09:58 | XMS_ITS | Patient Health Record ---
Author Organization [facility] Billing Info Address [address] [place] [id number] Care Team Providers Care Adventure Challenge Instructor Name Role Phone TASHA ROWE Unavailable [phone] Allergies Allergen (clinical drug ingredient) Drug/Non Drug Allergy documented on EMR Reaction Allergy Type Onset Date Status Information temporarily unavailable Morphine Sulfate Unknown Drug Allergy Active Reason For Referral No Information Medications Medication SIG (Take, Route, Frequency, Duration) Notes Start Date End Date Status Lisinopril-Hydrochlorothia zide 20-12.5 MG 1/2 TABLET ONCE A DAY ORALLY 90 DAYS for 90 Active Immune Enhance - Orally Act marysol Aspir-81 81 MG 1 tablet Orally Daily Active [place]oul 3 1000 MG 1 capsule Orally Onc e a day for 30 day(s) Active Vitamin D-3 5000 UNIT as directed Orally once daily Active TURMERIC 1 tab Oral Active Charles Seed as directed Orally A ctive Immunizations Vaccine Route Administration Date Status Comme nts PNEUMOCOCCAL - 23 POLY (PNEUMOVAX 23) IM Intramuscular 03/18/2016 Administered zFLU 4V (FLUZONE QUAD), 3 YRS+, NO PRES - ALL PAYORS IM Intramuscular 01/21/2017 Administered zFLU 4V (FLUZONE QUAD), 3 YRS+, NO PRES - ALL PAYORS IM Intramuscular 02/11/2018 Administered Problems Problem Type SNOMED Code ICD Code Onset Dates Problem Status W/U Status Risk Notes Problem Information temporarily unavailable Unspecified venous (peripheral) insufficiency (459.81) Active confirmed Problem 422726033 Encounter for immunization (Z23) Active confirmed Problem 267182387 Osteoarthritis (715.90) Active confir med Problem 6528786 Essential hypert ension, benign (I10) Active confirmed Problem 574039474 Pure hypercholesterolemia (E78.00) Active confirmed Plan Of Treatment No Information Insurance Providers Payer Name Payer Address Payer Phone Subscriber Number Group Number Insured Name Patient Relationship to Insured Coverage Start Date Coverage End Date [place] [address] [place] [address] [address] [place], [place] [id number] Becki Montes De Oca Self - patient is the insured 7 Medical (General) History Medical History History ICD Code HTN Hypercholesterol OA Venous Insuff Surgical History Surgery Date(Month/Year) SCOT/BSO due to remote uterine cancer tonsillectomy
--- NOTE | 2025-02-04 10:11 | W.ED.FALL ---
HPI - Fall General: Chief Complaint: Fall Stated Complaint: multiple falls Source: patient and EMS Mode of arrival: EMS Limitations: no limitations History of Present Illness: 74-year-old female states she has had some generalized weakness over the last 3 days states she has had 3 falls over the last 3 days as well. States she does walk with a cane but is felt weak and has fallen like she is walking a cane. She denies any injuries from the fall besides having some slight knee pain does have an abrasion to her head but does not member hitting her head. She denies any chest pain denies any abdominal pain. Related Data Previous Rx's ?Medication ?Instructions ?Recorded cephalexin 500 mg capsule 500 mg PO TID 7 days #21 caps 02/04/25 Allergies Allergy/AdvReac Type Severity Reaction Status Date / Time No Known Allergies Allergy Verified 02/04/25 10:29 Review of Systems Const: Reports: fatigue Physical Exam Const: COMMON NORMALS: patient oriented x3 HENMT: COMMON NORMALS: normocephalic HEAD & SCALP: normocephalic OTHER: abrasion to forehead Eye: COMMON NORMALS: Equal, round and reactive pupils present and EOMs intact bilaterally PUPIL: Yes Equal, round and reactive pupils present Neck/C-Spine: COMMON NORMALS: full ROM and supple Chest: COMMONS NORMALS: normal inspection of the chest and normal palpation of entire chest wall Resp: COMMON NORMALS: normal respiratory effort, No retractions, No use of accessory muscles and clear to auscultation bilaterally AUSCULTATION: clear to auscultation bilaterally Cardio: COMMON NORMALS: regular rate, regular rhythm and No murmurs present (Cardio) RATE: regular rate RHYTHM: regular rhythm GI: COMMON NORMALS: Normal to inspection, nondistended, normoactive bowel sounds present, Soft to palpation, non-tender and no masses PALPATION: Yes Soft to palpation Extremity: COMMON NORMALS: normal to inspection and full ROM Neuro: COMMON NORMALS: patient oriented x3, moves all extremities and no focal motor deficits Psych: COMMON NORMALS: mental status grossly normal, Normal thought process present and cooperative THOUGHT PROCESS: Normal thought process present Skin: COMMON NORMALS: no rashes or lesions noted and no wounds GENERAL SKIN EXAM: no rashes or lesions noted Course Vital Signs: Vital signs: Vital Signs Pulse Rate 87 02/04/25 10:30 Blood Pressure 121/56 02/04/25 11:46 Pulse Oximetry 97 02/04/25 11:46 Oxygen Delivery Me thod Room Air 02/04/25 11:46 MDM - Fall Medical Decision Making Patient presents here with some mild weakness has had 3 falls over the last 3 days. Differential includes infection, stroke. Head CT here was normal she has no focal deficits no signs of a stroke here. Patient was able to ambulate here with a walker without any difficulty. Blood work including white count here is normal. She did have a UTI could be causing some of her weakness. Did give her Rocephin here we will prescribe her Keflex for home did put in a DME order for a walker and informed her she needs to use a walker she is return if worsening she understands agrees to plan. I did go over all her labs and imaging and EKG EKG here showed normal sinus rhythm heart rate [address] elevation QRS 81 QTc 4 and 4 Medical Records I reviewed the patient's medical records. Lab Data I reviewed the patient's lab results. 02/04/25 10:27 02/04/25 10:27 Radiology Impressions Chest X-Ray 02/04/25 09:57 Impression: Negative chest. Head CT 02/04/25 09:57 IMPRESSION: 1. No evidence of intracranial hemorrhage or mass effect. 2. No acute intracranial findings. Laboratory Results WBC 12.98 10^3/uL (3.29-11.43) H 02/04/25 10: RBC 4.11 10^6/uL (3.85-5.65) 02/04/25 10:27 Hgb 11.80 g/dL (11.27-16.99) 02/04/25 10:27 Hct 34.6 % (36-47) L 02/04/25 10:27 MCV 84.2 fl (85-98) L 02/04/25 10:27 MCH 28.7 pg (27-33) 02/04/25 10: MCHC 34.1 g/dL (30-55) 02/04/25 10:27 RDW 12.8 % (12.1-15.1) 02/04/25 10: Plt Count 354 10^3/cmm (157-399) 02/04/25 10: MPV 8.4 fL (7.4-10.4) 02/04/25 10:27 Neut % (Auto) 85.6 % 02/04/25 10:27 Lymph % (Auto) 8.6 % 02/04/25 10:27 [place] % (Auto) 4.5 % 02/04/25 10:27 Eos % (Auto) 0.4 % 02/04/25 10:27 Baso % (Auto) 0.4 % 02/04/25 10:27 Neut # (Auto) 11.11 10^3/uL (1.8-7.7) H 02/04/25 10:27 Lymph # (Auto) 1.1 10^3/uL (0.8-4.8) 02/04/25 10:27 [place] # (Auto) 0.6 10^3/uL (0.2-0.9) 02/04/25 10:27 Eos # (Auto) 0.1 10^3/uL (0.0-0.8) 02/04/25 10:27 Baso # (Auto) 0.1 10^3/uL (0.0-0.1) 02/04/25 10:27 Nucleated RBC % (auto) 0 % 02/04/25 10: Nucleated RBCs # 0.0 /100WBC 02/04/25 10:27 Sodium 124 mmol/L (136-145) L 02/04/25 10:27 Potassium 4.2 mmol/L (3.5-5.1) 02/04/25 10: Chloride 87 mmol/L (98-107) L 02/04/25 10:27 Carbon Dioxide 24 mmol/L (22-29) 02/04/25 10:27 Anion Gap 17.2 (5-19) 02/04/25 10:27 BUN 13 mg/dL (8-23) 02/04/25 10:27 Creatinine 0.8 mg/dL (0.5-0.9) 02/04/25 10:27 GFR Calculation Not Reportable 02/04/25 10:27 Glucose 93 mg/dL (65-115) 02/04/25 10:27 Calculated Osmolality 258 mOsm/kg (285-295) L 02/04/25 10:27 Calcium 9.4 mg/dL (8.5-10.5) 02/04/25 10:27 Magnesium 1.7 mg/dL (1.7-2.3) 02/04/25 10: Total Bilirubin 0.5 mg/dL (0.15-1.2) 02/04/25 10: AST 38 U/L (0-32) H 02/04/25 10: ALT 21 U/L (0-33) 02/04/25 10: Alkaline Phosphatase 123 U/L (35-105) H 02/04/25 10: Total Protein 6.7 g/dL (6.6-8.7) 02/04/25 10: Albumin 3.8 g/dL (3.5-5.2) 02/04/25 10: Globulin 2.9 g/dL (1.3-4.6) 02/04/25 10: TSH 1.00 uIU/mL (0.27-4.20) 02/04/25 10: Urine Color [place] (Yellow) A 02/04/25 11:37 Urine Appearance Cloudy (CLEAR) A 02/04/25 11:37 Urine pH 5.5 (5-7) 02/04/25 11:37 Ur Specific [place] 1.012 (1.005-1.030) 02/04/25 11:37 Urine Protein Negative (Negative) 02/04/25 11:37 Urine Glucose (UA) Negative (Normal) 02/04/25 11:37 Urine Ketones Trace (Negative) 02/04/25 11:37 Urine Blood Negative (Negative) 02/04/25 11:37 Urine Nitrate Positive (Negative) A 02/04/25 11:37 Urine Bilirubin Negative (Negative) 02/04/25 11:37 Urine Urobilinogen 1.0 mg/dL (Negative) 02/04/25 11:37 Ur Leukocyte Esterase Trace (Negative) A 02/04/25 11:37 Urine RBC 0-2 /hpf (0-2) 02/04/25 11:37 Urine WBC 11-20 /hpf (0-5) H 02/04/25 11:37 Ur Squamous Epith Cells 6-10 /hpf (0-5) 02/04/25 11:37 Amorphous Sediment Not Reportable 02/04/25 11:37 Urine Bacteria 4+ /hpf (NONE) H 02/04/25 11:37 Hyaline Casts 11.97 /lpf 02/04/25 11:37 All radiology interpretation(s) finalized by discharge EKG Data EKG 1: I personally reviewed and interpreted this EKG as follows: EKG interpretation date: 02/04/25 EKG interpretation time: 19:09 Interpretation: nsr hr [address] elevation qrs 81 qtc 414 Discharge Plan Discharge Patient Disposition: Home Clinical Impression: Acute cystitis Condition: Stable Prescriptions: New cephalexin 500 mg capsule 500 mg PO TID 7 Days Qty: 21 0RF Discharge Orders: Discharge ED (Routine); Ordered 02/04/25 Ordered By: Melissa Bejarano Other Ambulatory Orders: DME: [facility] (Order) Location: None Selected Ordered By: Melissa Bejarano Referrals: Booker Salinas MD [Primary Care Provider, Family Practice] - 4-7 days Discharge Diet: Advance as tolerated Discharge Activity: Resume usual activity Patient Instructions: Urinary Tract Infection in Women (ED) Print Language: Costa Rican Coding Level of Care Code ED Manager Equipment for Kiara Nichole
[2025-02-04 10:30] VITALS: BP 108/75; PULSE 87; O2SAT 100
[2025-02-04 10:34] LABS: Hematocrit 34.6 % (36-47); Hemoglobin 11.80 g/dL (11.27-16.99); Mean Corpuscular HGB Conc 34.1 g/dL (30-55); Mean Corpuscular Hemoglobin 28.7 pg (27-33); Mean Corpuscular Volume 84.2 fl (85-98); Nucleated Red Blood Cells % 0 %; Platelet Count 354 10^3/cmm (157-399); Red Blood Count 4.11 10^6/uL (3.85-5.65); White Blood Count 12.98 10^3/uL (3.29-11.43)
[2025-02-04 11:02] LABS: Alanine Aminotransferase 21 U/L (0-33); Albumin Level 3.8 g/dL (3.5-5.2); Alkaline Phosphatase 123 U/L (35-105); Anion Gap 17.2 (5-19); Aspartate Amino Transferase 38 U/L (0-32); Blood Urea Nitrogen 13 mg/dL (8-23); Calcium 9.4 mg/dL (8.5-10.5); Carbon Dioxide 24 mmol/L (22-29); Chloride 87 mmol/L (98-107); Creatinine Clr Calc Pharmacy 56.2071; Globulin 2.9 g/dL (1.3-4.6); Glucose 93 mg/dL (65-115); Magnesium 1.7 mg/dL (1.7-2.3); Osmolality Calculated 258 mOsm/kg (285-295); Potassium 4.2 mmol/L (3.5-5.1); Sodium 124 mmol/L (136-145); Thyroid Stimulating Hormone 1.00 uIU/mL (0.27-4.20); Total Protein 6.7 g/dL (6.6-8.7)
[2025-02-04 11:24] VITALS: BP 118/68; O2SAT 95
[2025-02-04 11:46] VITALS: BP 121/56; O2SAT 97
[2025-02-04 11:51] LABS: Glucose Urine UA Negative (Normal); Nitrate Urine Positive (Negative); Specific Gravity, Urine 1.012 (1.005-1.030)
[2025-02-04 11:54] LABS: Add Urine Microscopic? YES
[2025-02-04 12:10] LABS: UA Slide Review UA Slide Review Perf
[2025-02-04] MEDS: cefTRIAXone 1,000 mg SDV 1000 MG IVP (12:35)
--- NOTE | 2025-02-04 12:58 | DCPLANNER ---
Talked with pt's step-daughter, Eve regarding pt circumstances. Pt is 74 yo living by herself and the family lives next door. Eve is having concerns for pt's memory and recent falls. Eve would like information on IHS, HH, and how to get pt into a skilled nursing. Eve stated pt would go into a SNF willingly. Eve was advised to submit for Medicaid due to cost of IHS and SNF. Eve believes that pt would be able to pay for either. Eve was given information on service processes, IHS listings, and SNF numbers. Eve would like to try starting with HH with [facility], Laurel volunteered to submit for HH services.
[2025-02-04 13:06] VITALS: BP 136/97; PULSE 88; RESP 16; O2SAT 100
== END 2025-02-04 13:07 | disposition home or self-care (01) ==
PROVIDERS: Emergency Provider Emergency Medicine; PCP Family Medicine
DX: N30.00 Acute cystitis without hematuria (principal)
CPT/HCPCS: 36415; 70450; 71045; 80053; 81001; 83735; 84443; 85025; 87077; 87086; 87186; 93005; 96361; 96374; 99285; J0696; J7030

== ENCOUNTER 2025-02-12 13:43 | Emergency (ER) | payer MEDICARE, SELFPAY ==
[2025-02-12 13:44] VITALS: BP 150/74; PULSE 96; RESP 14; TEMP 36.6; O2SAT 98; BMI 31.5
--- NOTE | 2025-02-12 13:52 | XRR_ITS ---
PROCEDURE INFORMATION: Exam: XR Right Hip Exam date and time: 02/12/2025 2:13 PM Age: 74 years old Clinical indication: Injury or trauma; Fall; Blunt trauma (contusions or hematomas); Right; Hip TECHNIQUE: Imaging protocol: Radiologic exam of the right hip. Views: 1 view hip with pelvis when performed. COMPARISON: No relevant prior studies available. FINDINGS: Bones/joints: There are significant degenerative changes of the lower lumbar spine. No fractures are identified. Soft tissues: Unremarkable. XR/XR hip RT 2-3V wo/w pel* [id number] IMPRESSION: Degenerative changes of the lower spine. No acute fractures identified.
--- OUTSIDE RECORDS SUMMARY | 2025-02-12 13:52 | XMS_ITS | Patient Health Record ---
Author Organization [facility] Sapna kamara Billing Info Address [address] [place] [id number] Care Team Providers Care Electrolysis Needle Operator Name Role Phone TASHA ROWE [phone] Allergies Allergen (clinical drug ingredient) Drug/Non Drug Allergy documented on EMR Reaction Allergy Type Onset Date Status morphine Morphine Sulfate Unknown Drug Allergy Active Reason For Referral No Information Medications Medication SIG (Take, Route, Frequency, Duration) Notes Start Date End Date Status Lisinopril-Hydrochlorothia zide 20-12.5 MG 1/2 TABLET ONCE A DAY ORALLY 90 DAYS for 90 Active Immune Enhance - Orally Act marysol Aspir-81 81 MG 1 tablet Orally Daily Active Dale 3 1000 MG 1 capsule Orally Onc [...] Problem Status W/U Status Risk Notes Problem Peripheral venous insufficiency (32367778) Unspecified venous (peripheral) insufficiency (459.81) Active confirmed Problem 961246994 Encounter for immunization (Z23) Active confirmed Problem 213282270 Osteoarthritis (715.90) Active confirmed Problem 0039457 Essential hypertension, benign (I10) Active confirmed Problem 737815521 Pure hypercholesterolemia (E78.00) Active confirmed Plan Of Treatment No Information Insurance Providers Payer Name Payer Address Payer Phone Subscriber Number Group Number Insured Name Patient Relationship to Insured Coverage Start Date Coverage End Date [place] [address] [address] [place], [place] [id number] Becki Montes De Oca Self - patient is the insured 7 Medical (General) History Medical History History ICD Code HTN Hypercholesterol OA Venous Insuff Surgical History Surgery Date(Month/Year) tonsillectomy SCOT/BSO due to remote uterine cancer
--- OUTSIDE RECORDS SUMMARY | 2025-02-12 13:53 | XMS_ITS | Data Portability ---
Author Organization [facility] Raimundo Fontana [facility] Gnujan Coronado [facility] Address [address] [id number] Assessment Encounter Date Assessment Date Assessment LastModified [...] Lab CMP, serum or plasma 2024 025 [place] [facility], [address], [place], [address], 11/29/2024 13:45:15 lipid panel, blood 2024 025 [place] [facility], [address] [facility] [address], [address], [place], [address], 11/29/2024 13:45:18 CBC 2024 025 [facility], [address], [address], [place], [address], 11/29/2024 13:09:41 CMP, serum or plasma 2022 023 [facility], [address], [address], [place], [address], 01/27/2023 16:37:38 lipid panel, blood 2022 023 [facility], [address], [address], [place], [address], 01/27/2023 16:00:37 CBC 2022 023 [facility], [address], [address], [place], [address], 01/27/2023 15:20:18 noninvasi ve colorecta l cancer DNA + occult blood screening , QL, stool 2022 023 [facility], [address], [address], [place], [address], 02/10/2023 02:36:[address] referral 2023 024 [email or web address] Not available 04/23/2023 14:30:18 otolaryng ologist referral 2023 024 [email or web address] Chu Awad MD, [address], [place], [address], 05/07/2023 14:32:00 Procedures None recorded. Surgeries None recorded. Imaging MAMMO, screening , tomosynth esis, bilateral 2022 023 [email or web address] [facility] (Scheduling Orders), [address], [place], [address], 02/05/2023 15:42:44 Medication Orders omeprazol e 20 mg capsule,d elayed release 2023 024 [id number], [address], [address], [place], [address], 08/26/2023 11:38:50 Patient TargetsNo targets recorded. Patient InstructionsNo instructions recorded. 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 Referral fo r Bilateral tinnitus Referring Physician: Booker Salinas [facility], Encounter Date: 04/21/2023 Results Created Date Observation Date Name Description Value Unit Range Abnormal Flag Note LastModifiedBy Organization Detail LastModifiedTime 01/28/2001/27/2023 CBC WBC 10.7 x10 4.0-10 .5 high Not Available [facility] [address], [place], [address], 01/27/2023 15:20:18 01/28/2001/27/2023 CBC RBC 3.74 x10 3.50-5 .50 Not Available [facility] [address], [place], [address], 01/27/2023 15:20:18 01/28/2001/27/2023 CBC HGB 11.4 g/dL 12.0-1 6.0 low Not Available [facility] [address], [place], [address], 01/27/2023 15:20:18 01/28/2001/27/2023 CBC HCT 33.1 % 37.0-4 7.0 low Not Available [facility] [address], [place], [address], 01/27/2023 15:20:18 01/28/2001/27/2023 CBC MCV 88.6 fL 80.0-9 9.9 Not Available [facility] [address] [facility] [address] [facility], [place], [address], 01/27/2023 15:20:18 01/28/20 23 01/27/2023 CBC MCH 30.5 pg 27.0-3 2.0 Not Available [facility] [address] [facility], [place], [address], 01/27/2023 15:20:18 01/28/20 23 01/27/2023 CBC MCHC 34.5 g/dL 32.0-3 6.0 Not Available [facility] [address] [facility], [place], [address], 01/27/2023 15:20:18 01/28/20 23 01/27/2023 CBC RDW 14.6 % 11.5-1 4.6 Not Available [facility] [address] [facility], [place], [address], 01/27/2023 15:20:18 01/28/20 23 01/27/2023 CBC plt 371.0 x10 140.0- 451.0 Not Available [facility] [address] [facility], [place], [address], 01/27/2023 15:20:18 01/28/2001/27/2023 CBC lymphocytes % 18.4 % 20.0-5 0.0 low Not Available [facility] [address] [facility], [place], [address], 01/27/2023 15:20:18 01/28/20 23 01/27/2023 CBC granulcytes % 72.3 % 30.0-7 0.0 high Not Available [facility] [address] [facility], [place], [address], 01/27/2023 15:20:18 01/28/20 23 01/27/2023 CBC monocytes % 6.4 % 2.0-10 .0 Not Available [facility] [address], [place], [address], 01/27/2023 15:20:18 01/28/20 23 01/27/2023 CBC granulcytes# 7.8 x10 Not Prabha ilable [facility] [address], [place], [address], 01/27/2023 15:20:18 01/28/20 23 01/27/2023 CBC lymphocytes # 2.0 x10 Not Available [facility] [address], [place], [address], 01/27/2023 15:20:18 01/28/20 23 01/27/2023 CBC monocytes # 0.7 x10 Not Avai lable [facility] [address], [place], [address], 01/27/2023 15:20:18 01/28/20 23 01/27/2023 LIPID PROFI LE (FEMA LE) cholesterol 101.0 mg/dL 0.0-20 0.0 Not Available [facility] [address], [place], [address], 01/27/2023 16:00:36 01/28/20 23 01/27/2023 LIPID PROFI LE (FEMA LE) trig 118.0 mg/dL 0.0-15 0.0 Not Available [facility] [address], [place], [address], 01/27/2023 16:00:36 01/28/20 23 01/27/2023 LIPID PROFI LE (FEMA LE) HDL - direct 34.0 mg/dL >40.0 low Not Available [facility] [address], [place], [address], 01/27/2023 16:00:36 01/28/20 23 01/27/2023 LIPID PROFI LE (FEMA LE) VLDL - direct 23.6 mg/dL Not Available [facility] [address] [facility] 1, [place], [address], 01/27/2023 16:00:36 01/28/20 23 01/27/2023 LIPID PROFI LE (FEMA LE) LDL - direct 43.4 mg/dL 0.0-13 0.0 Not Available [facility] [address] [facility], [place], [address], 01/27/2023 16:00:36 01/28/20 23 01/27/2023 CMP (FEMA LE) glucose 118.0 mg/dL 60.0-9 9.0 high Not Available [facility] [address] [facility], [place], [address], 01/27/2023 16:37:37 01/28/20 23 01/27/2023 CMP (FEMA LE) BUN (blood urea nitrogen) 8.0 mg/dL 10.0-2 6.0 low Not Available [facility] [address] [facility], [place], [address], 01/27/2023 16:37:37 01/28/20 23 01/27/2023 CMP (FEMA LE) creatinine (serum) 0.9 mg/dL 0.4-1. 5 Not Available [facility] [address] [facility], [place], [address], 01/27/2023 16:37:37 01/28/20 23 01/27/2023 CMP (FEMA LE) BUN/creatini ne ratio 8.89 ratio Not Available [facility] [address] [facility], [place], [address], 01/27/2023 16:37:37 01/28/2001/27/2023 CMP (FEMA LE) eGFR calculated 65.4 Not Available [facility] [address] [facility] [address], [place], [address], 01/27/2023 16:37:37 01/28/2001/27/2023 CMP (FEMA LE) total protein 7.4 g/dL 6.0-8. 5 Not Available [facility] [address], [place], [address], 01/27/2023 16:37:37 01/28/2001/27/2023 CMP (FEMA LE) total bilirubin 0.5 mg/dL 0.2-1. 3 Not Available [facility] [address] [facility], [place], [address], 01/27/2023 16:37:37 01/28/2001/27/2023 CMP (FEMA LE) albumin 4.6 g/dL 3.5-5. 5 Not Available [facility] [address] [facility], [place], [address], 01/27/2023 16:37:37 01/28/2001/27/2023 CMP (FEMA LE) globulin 2.8 calc Not Available [facility] [address] [facility], [place], [address], 01/27/2023 16:37:37 01/28/2001/27/2023 CMP (FEMA LE) AST (SGOT) 36.0 U/L 0.0-46 .0 Not Available [facility] [address] [facility], [place], [address], 01/27/2023 16:37:37 01/28/20 01/27/2023 CMP (FEMA LE) altv (SGPT) 21.0 U/L 13.0-6 9.0 normal Not Available [facility] [address], [place], [address], 01/27/2023 16:37:37 01/28/20 23 01/27/2023 CMP (FEMA LE) A/G ratio 1.6 ratio Not Available [facility] [address], [place], [address], 01/27/2023 16:37:37 01/28/2001/27/2023 CMP (FEMA LE) ALP phos 90.0 U/L 30.0-1 40.0 normal Not Available [facility] [address], [place], [address], 01/27/2023 16:37:37 01/28/20 23 01/27/2023 CMP (FEMA LE) calcium 8.9 mg/dL 8.4-10 .5 Not Available [facility] [address], [place], [address], 01/27/2023 16:37:37 01/28/20 23 01/27/2023 CMP (FEMA LE) sodium 129.0 mmol/ L 136.0- 145.0 low Not Available [facility] [address], [place], [address], 01/27/2023 16:37:37 01/28/2001/27/2023 CMP (FEMA LE) potassium 4.1 mmol/ L 3.5-5. 1 Not Available [facility] [address], [place], [address], 01/27/2023 16:37:37 01/28/20 23 01/27/2023 CMP (FEMA LE) chloride 93.0 mmol/ L 98.0-1 10.0 abnormal Not Available [facility] [address] [facility] [address], [place], [address], 01/27/2023 16:37:37 01/28/2001/27/2023 CMP (FEMA LE) C02 24.0 mmol/ L 22.0-3 1.0 Not Available [facility] [address] [facility] [address], [place], [address], 01/27/2023 16:37:37 01/28/2001/27/2023 CMP (FEMA LE) anion gap 12.0 calc Not Available [facility] [address] [facility] [address], [place], [address], 01/27/2023 16:37:37 01/28/2001/27/2023 CMP (FEMA LE) osmolality 266.6 calc Not Available [facility] [address], [place], [address], 01/27/2023 16:37:37 02/04/2002/03/2023 COLOG UARD cologuard result [...] of 10,00 0 indiv [facility]ual [facility] for color ectal cance r who [...] asymp tomat ic indiv idual s at [facility] risk for color ectal cance r. Follo [...] 112:1 016-1 030. TEST DESCR IPTIO N: [place] site algor ithmi c yayo sis of [...] years or older , who are at [facility] for color ectal cance r (CRC) . Colog uard has been appro lawrence for use by the [place] FDA. The perfo rmanc e of Colog uard was estab lishe d in a cross secti onal study of [facility] adult s aged 50-84 . Colog [...] study of 0 indiv [facility]ual [facility] risk for color ectal cance r who [...] found at [email or web address] [email or web address] om. Not Available [facility] [address], [place], [address], 02/10/2023 02:36:25 11/30/19 25 11/29/2024 CBC WBC 10.0 x10 4.0-10 .5 Not Available [facility] [address], [place], [address], 11/29/2024 13:09:41 11/30/19 25 11/29/2024 CBC RBC 3.90 x10 3.50-5 .50 Not Available [facility] [address] [facility], [place], [address], 11/29/2024 13:09:41 11/30/19 25 11/29/2024 CBC HGB 11.4 g/dL 12.0-1 6.0 low Not Available [facility] [address] [facility] [facility], [place], [address], 11/29/2024 13:09:41 11/30/19 25 11/29/2024 CBC HCT 35.8 % 37.0-4 7.0 low Not Available [facility] [address] [facility] [facility], [place], [address], 11/29/2024 13:09:41 11/30/19 25 11/29/2024 CBC MCV 91.7 fL 80.0-9 9.9 Not Available [facility] [address] [facility] [facility], [place], [address], 11/29/2024 13:09:41 11/30/19 25 11/29/2024 CBC MCH 29.3 pg 27.0-3 2.0 Not Available [facility] [address] [facility] [address] [facility], [place], [address], 11/29/2024 13:09:41 11/30/19 25 11/29/2024 CBC MCHC 32.0 g/dL 32.0-3 6.0 Not Available [facility] [address] [facility] [address] [facility], [place], [address], 11/29/2024 13:09:41 11/30/19 25 11/29/2024 CBC RDW 14.4 % 11.5-1 4.5 Not Available [facility] [address] [facility] [facility], [place], [address], 11/29/2024 13:09:41 11/30/19 25 11/29/2024 CBC plt 395.2 x10 140.0- 451.0 Not Available [facility] [address] [facility], [place], [address], 11/29/2024 13:09:41 11/30/19 25 11/29/2024 CBC lymphocytes % 17.5 % 20.0-5 0.0 low Not Available [facility] [address] [facility], [place], [address], 11/29/2024 13:09:41 11/30/19 25 11/29/2024 CBC granulcytes % 73.9 % 30.0-7 0.0 high Not Available [facility] [address] [facility], [place], [address], 11/29/2024 13:09:41 11/30/19 25 11/29/2024 CBC monocytes % 7.0 % 2.0-16 .0 Not Available [facility] [address] [facility], [place], [address], 11/29/2024 13:09:41 11/30/19 25 11/29/2024 CBC granulcytes# 7.4 x10 Not Prabha ilable [facility] [address] [facility] [address], [place], [address], 11/29/2024 13:09:41 11/30/19 25 11/29/2024 CBC lymphocytes # 1.7 x10 Not Available [facility] [address] [facility], [place], [address], 11/29/2024 13:09:41 11/30/19 25 11/29/2024 CBC monocytes # 0.7 x10 Not Avai lable [facility] [address] [facility], [place], [address], 11/29/2024 13:09:41 11/30/19 25 11/29/2024 CMP (FEMA LE) glucose 105.0 mg/dL 60.0-9 9.0 high Not Available [facility] [address] [facility] [address] [address], [place], [address], 11/29/2024 13:45:15 11/30/19 25 11/29/2024 CMP (FEMA LE) BUN (blood urea nitrogen) 17.0 mg/dL 10.0-2 6.0 Not Available [facility] [address] [address], [place], [address], 11/29/2024 13:45:15 11/30/19 25 11/29/2024 CMP (FEMA LE) creatinine (serum) 1.1 mg/dL 0.4-1. 5 Not Available [facility] [address] [address], [place], [address], 11/29/2024 13:45:15 11/30/19 25 11/29/2024 CMP (FEMA LE) BUN/creatini ne ratio 15.45 ratio Not Available [facility] [address] [address], [place], [address], 11/29/2024 13:45:15 11/30/19 25 11/29/2024 CMP (FEMA LE) eGFR calculated 51.6 Not Available [facility] [address] [facility], [place], [address], 11/29/2024 13:45:15 11/30/19 25 11/29/2024 CMP (FEMA LE) total protein 7.0 g/dL 6.0-8. 5 Not Available [facility] [address] [facility] 1, [place], [address], 11/29/2024 13:45:15 11/30/19 25 11/29/2024 CMP (FEMA LE) total bilirubin 0.5 mg/dL 0.2-1. 3 Not Available [facility] [address] [facility] [address], [place], [address], 11/29/2024 13:45:15 11/30/19 25 11/29/2024 CMP (FEMA LE) albumin 3.8 g/dL 3.5-5. 5 Not Available [facility] [address] [facility] [address] [address], [place], [address], 11/29/2024 13:45:15 11/30/19 25 11/29/2024 CMP (FEMA LE) globulin 3.2 calc Not Available [facility] [address] [facility] 1, [place], [address], 11/29/2024 13:45:15 11/30/19 25 11/29/2024 CMP (FEMA LE) AST (SGOT) 40.0 U/L 0.0-46 .0 Not Available [facility] [address] [facility] 1, [place], [address], 11/29/2024 13:45:15 11/30/19 25 11/29/2024 CMP (FEMA LE) altv (SGPT) 22.0 U/L 13.0-6 9.0 normal Not Available [facility] [address] [facility] [address] [facility], [place], [address], 11/29/2024 13:45:15 11/30/19 25 11/29/2024 CMP (FEMA LE) A/G ratio 1.2 ratio Not Available [facility] [address], [place], [address], 11/29/2024 13:45:15 11/30/19 25 11/29/2024 CMP (FEMA LE) ALP phos 121.0 U/L 30.0-1 40.0 normal Not Available [facility] [address] [facility], [place], [address], 11/29/2024 13:45:15 11/30/19 25 11/29/2024 CMP (FEMA LE) calcium 9.0 mg/dL 8.4-10 .5 Not Available [facility] [address], [place], [address], 11/29/2024 13:45:15 11/30/19 25 11/29/2024 CMP (FEMA LE) sodium 136.0 mmol/ L 136.0- 145.0 Not Available [facility] [address], [place], [address], 11/29/2024 13:45:15 11/30/19 25 11/29/2024 CMP (FEMA LE) potassium 4.1 mmol/ L 3.5-5. 1 Not Available [facility] [address], [place], [address], 11/29/2024 13:45:15 11/30/19 25 11/29/2024 CMP (FEMA LE) chloride 100.0 mmol/ L 98.0-1 10.0 normal Not Available [facility] [address] [facility], [place], [address], 11/29/2024 13:45:15 11/30/19 25 11/29/2024 CMP (FEMA LE) C02 28.0 mmol/ L 22.0-3 1.0 Not Available [facility] [address] [facility] 1, [place], [address], 11/29/2024 13:45:15 11/30/19 25 11/29/2024 CMP (FEMA LE) anion gap 8.0 calc Not Available [facility] [address] [facility] 1, [place], [address], 11/29/2024 13:45:15 11/30/19 25 11/29/2024 CMP (FEMA LE) osmolality 282.9 calc Not Available [facility] [address] [facility] 1, [place], [address], 11/29/2024 13:45:15 11/30/19 25 11/29/2024 LIPID PROFI LE (FEMA LE) cholesterol 133.0 mg/dL 0.0-20 0.0 Not Available [facility] [address] [facility] 1, [place], [address], 11/29/2024 13:45:18 11/30/19 25 11/29/2024 LIPID PROFI LE (FEMA LE) trig 103.0 mg/dL 0.0-15 0.0 Not Available [facility] [address] [facility] 1, [place], [address], 11/29/2024 13:45:18 11/30/19 25 11/29/2024 LIPID PROFI LE (FEMA LE) HDL - direct 52.0 mg/dL >40.0 Not Available [facility] [address] [facility] 1, [place], [address], 11/29/2024 13:45:18 11/30/19 25 11/29/2024 LIPID PROFI LE (FEMA LE) VLDL - direct 20.6 mg/dL Not Available [facility] [address] [facility] [address], [place], [address], 11/29/2024 13:45:18 11/30/19 25 11/29/2024 LIPID PROFI LE (FEMA LE) LDL - direct 60.4 mg/dL 0.0-13 0.0 Not Available [facility] [address] [facility] [address], [place], [address], 11/29/2024 13:45:18 02/15/20 23 02/14/2023 MAMMO , scree maximilian, tomos ynthe sis, bilat eral No observ ation record ed. [facility] [address] [place], [address], 02/17/2023 09:11:43 Result Notes None recorded. Problems Name Problem SNOMED Code Status Onset Date Resolution Date Notes Provider Name and Address Organization Details Recorded Time Essential hypertensi on 13170843 Active 2022 Not Available [facility] 4 08:46:13 Hyperchole sterolemia 51470055 Active 2023 Not Available [facility] 4 08:46:13 Bilateral tinnitus 0950279711241 Active 2023 Not Available [facility] 4 08:46:13 Gastroesop hageal reflux disease 224385532 Active 2023 Booker Salinas MD [address] [place], [address] , [facility] 4 11:34:35 Disorder of cardiovasc ular system 30570516 Active 2024 Booker Salinas MD [address] [place], [address] , [facility] 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 Procedures Surgical History Date Name Laterality Status Provider Name and Address Organization Details Recorded Time 06/10/19 [facility]/10[facility]23 14:14:45 [facility] 01/27/2023 14:02:27 [facility] 01/27/2023 14:02:42 Imaging Results None recorded. Procedure Notes None recorded. Medical Equipment None Reported. Allergies No known drug allergies Medications Name Sig Start Date Stop Date Status Note LastModified by Organization Details LastModified Time lisinopril 20 mg-hydrochlo rothiazide 12.5 mg tablet TAKE 1 TABLET BY MOUTH EVERY DAY 2024 active Not Available Not Available Not Avai lable meloxicam 15 mg tablet TAKE 1 TABLET [...] 4 20 /min 154.94 cm 34.1 kg/m2 07758.0 3 g 97.4 [degF] 86 /min 98 % 98 % 150/86 mm[Hg] DIANASA MARTELL [facility] 4 10:20:34 Date Recorded Body height Respiratory rate Body mass index (BMI) Body weight Body temperature Heart rate Oxygen saturation Oxygen saturation in Arterial blood by Pulse oximetry Systolic And Diastolic Provider Name and Address Organization Details Last Updated DateTime 4 154.94 cm 20 /min 32.9 kg/m2 98566.0 7 g 97 [degF] 72 /min 94 % 94 % 120/70 mm[Hg] DIANASA MARTELL [facility] 4 11:13:19 Date Recorded Body height Body mass index (BMI) Body weight Oxygen saturation Oxygen saturation in Arterial blood by Pulse oximetry Heart rate Respiratory rate Body temperature Systolic And Diastolic Provider Name and Address Organization Details Last Updated DateTime 5 154.94 cm 32.1 kg/m2 17406.9 8 g 99 % 99 % 99 /min 18 /min 96.9 [degF] 106/60 mm[Hg] Lita Rosendo [facility] 5 10:50:37 Date Recorded Respiratory rate Body temperature Heart rate Oxygen saturation Oxygen saturation in Arterial blood by Pulse oximetry Systolic And Diastolic Provider Name and Address Organization Details Last Updated DateTime 3 20 /min 97.5 [degF] 72 /min 99 % 99 % 120/82 mm[Hg] DIANA JASBIR [facility] 3 14:02:15 Social History Question Answer Notes LastModified by Organizat ion Details LastModified Time Tobacco Smoking Status Former Smoker DIANASA JASBIR 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 [id number] Information not available 01/27/2023 When Did You Quit Smoking? 16+yearssince theodore [id number] Information not available 11/29/2024 Which Of Your [...] 50 mcg/0.5 mL 02/18/2023 completed Not Available [facility] 5 10:15:57 Influenza, adjuvanted, quadrivalent, PF 02/18/2023 completed Not Available [facility] 5 10:15:57 RSV, recombinant, protein subunit RSVpreF, adjuvant reconstituted, 0.5 mL, PF 04/25/2023 completed Not Available [facility] 5 10:15:57 COVID-19, mRNA, LNP-S, PF, 50 mcg/0.5 mL 12/26/2023 completed Not Available [facility] 5 10:15:57 Influenza, adjuvanted, quadrivalent, PF 01/27/2023 completed Booker Salinas MD [address] [place] [address], [phone], [facility] 01/28/2023 08:41:18 Past Encounters Encounter ID Performer Location Encounter Start Date Encounter Closed Date Diagnosis/Indication Diagnosis SNOMED-CT Code Diagnosis ICD10 Code Diagnosis IMO Codes Diagnosis Note [id number] Booker Salinas MD [facility] ([facility]) [address] [place] [phone] 01/27/2023 13:36:53 01/27/2023 15:32:42 Active or passive immunization 084453201 Z23 Screening for malignant neoplasm of breast 330813343 Z12.39 Screening for malignant neoplasm of colon 332856872 Z12.11 Essential hypertension 64539391 I10 Adult heal th examination 321362011 Z00.00 [id number] Booker Salinas MD [facility] ([facility]) [address] [place] [phone] 04/21/2023 10:04:34 04/21/2023 12:12:50 Bilateral tinnitus [id number] 102 H93.13 likely related to hearing loss. We will send referral to audiology and ENT giving her overall concerns. Essential hypertension 83815352 I10 Hypercholesterolemia 136 26486 E78.00 [id number] Booker Salinas MD [facility] ([facility]) [address] [place] [phone] 08/26/2023 11:02:56 08/26/2023 11:51:05 Gastroesophageal reflux disease [id number] K21.9 Reflux may be contributi ng to the patient's symptoms. Recommend starting daily medication to help control symptoms better. Follow-up if symptoms do not improve. Bilateral tinnitus 82880 02056 102 H93.13 No improvemen t with hearing aids. No obvious medication s that would be contributi ng to the patient's symptoms. Encouraged the patient to bring the issue up with ENT at follow-up next week. [id number] ANATOLIY BOCANEGRA [facility] ([facility]) [address] [place] [address] [phone] 03/10/2024 09:23:28 03/10/2024 09:31:03 [id number] Booker Salinas MD [facility] ([facility]) [address] [place] [address] [phone] 11/29/2024 10:14:07 11/29/2024 11:40:47 Gastroesophageal reflux disease [id number] K21.9 Continue omeprazole Memory impairment 488249 006 R41.3 703503 Slums test performed today and she scored a 14 and this is consistent with dementia. Screening for cardiovascular system disease [id number] Z13.6 054881 Essential hypertension 42916951 I10 Continue current blood pressure management . Hypercholesterolemia 136 01565 E78.00 Tolerating statin. Primary de generative dementia of the Alzheimer type, senile onset 078033512 G30.1 F02.B0 [id number] The patient likely has Alzheimer' s based [...] [place] Member ID Guarantor Name 12/06/2024 1 [employer] (MEDICARE REPLACEMENT/A DVANTAGE - PPO) Becki Montes De Oca [id number] Becki Montes De Oca Notes Date Note [...] time for her Cologuard. Booker Salinas MD [address] [place] [address], [phone], [facility] 01/28/2023 08:43:30 04/21/2023 text/html ROS as [...] been having drooling issues Booker Salinas MD [address] [place] [address], [phone], [facility] 04/22/2023 09:41:32 08/26/2023 text/html Is a 72-year-old female that comes in today for evaluation. Patient states that she has been having increased burning and is utilizing Tums almost daily. Send the patient was also noticed increased drooling especially at night. Patient continues to struggle with tinnitus despite hearing aids. Patient does have follow-up with ENT next week. Booker Salinas MD [address] [place] [address], [phone], [facility] 08/26/2023 12:03:44 11/29/2024 text/html Annual WellnessReported by [...] like her tested today. Booker Salinas MD [address] [place], [phone], [facility] 12/05/2024 10:27:28 OBGyn Episode No OBEpisode recorded.
--- OUTSIDE RECORDS SUMMARY | 2025-02-12 13:53 | XMS_ITS | Patient Health Record ---
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 Role Phone TASHA ROWE Primary Care Provider Allergies Allergen (clinical drug [...] nts *COVID19* Moderna Covid 19 0.5 Vial [id number] box [id number] Unknown 05/12/2020 Administered *COVID19* Moderna Covid 19 0.5 Vial [id number] box [id number] Unknown 06/12/2020 Administered *COVID19* Moderna Covid 19 0.5 Vial [id number] box [id number] Unknown 02/15/2021 Administered *COVID19* Moderna Covid 19 0.5 Vial [id number] box [id number] Unknown 08/17/2021 Administered *PVT* FLULAVAL QIV [id number] IM Intramuscular 01/19/2020 Administered *PVT* FLUZONE HIG DOSE 65 AND UP B [id number] V [id number] Unknown 01/31/2021 Administered *PVT* Pneumococcal adult Pneumovax 23 [id number] Unknown 03/18/2016 Administered *PVT* Prevnar 13 [id number] IM Intramuscular 10/28/2019 Administered Patient tolerated well. [...] Problem Status W/U Status Risk Notes Problem Essential hypertension (07069211) Essential (primary) hypertension (I10) Active confirmed Problem Obesity due to excess calories (461160184) Other obesity due to excess calories (E66.09) Active confirmed Problem Hysterectomy (322785241) Acquired absence of both cervix and uterus (Z90.710) Active confirmed Problem Obesity (447370594) Other obesity (E66.8) Active confirmed Problem Gastro-esophageal reflux disease without esophagitis (202700325) Gastro-esophageal reflux disease without esophagitis (K21.9) Active confirmed Problem Arthritis (9984110) Arthritis (M19.90) Active confirmed Problem Leukocytosis (314619185) Leukocytosis, unspecified (D72.829) Active confirmed Problem Obese class II (607329828263793) BMI 37.0-37.9, adult (Z68.37) Active confirmed Problem Obese class II (479311017184380) BMI 36.0-36.9,adult (Z68.36) Active confirmed Problem Hyperlipidemia (35246106) Other hyperlipidemia (E78.49) Active confirmed Plan Of Treatment No Information Insurance Providers Payer Name Payer Address Payer Phone Subscriber Number Group Number Insured Name Patient Relationship to Insured Coverage Start Date Coverage End Date [employer] MEDICARE [address] [place] [phone] [id number] ANA AGUILERA Self - patient is the insured Medical (General) History Medical History History ICD Code Hypertension Hyperlipidemia Seasonal allergies Cervical cancer Surgical History Surgery Date(Month/Year) Tonsillectomy 1965 TOTAL HYSTERECTOMY 1988 Hospitalization History Reason Date(Month/Year) Surgery Above
--- NOTE | 2025-02-12 13:56 | XRR_ITS ---
PROCEDURE INFORMATION: Exam: XR Chest Exam date and time: 02/12/2025 2:12 PM Age: 74 years old Clinical indication: Cough and dyspnea; Additional info: Dyspnea/cough TECHNIQUE: Imaging protocol: Radiologic exam of the chest. Views: 1 view. COMPARISON: CR XR chest 1V portable [id number] 02/04/2025 9:58 AM FINDINGS: Lungs: Lungs are clear.. Pleural spaces: Unremarkable. No pleural effusion. No pneumothorax. Heart/Mediastinum: Heart size appears in the upper limits of normal. Bones/joints: Unremarkable. XR/XR chest 1V portable [id number] IMPRESSION: No acute abnormality identified.
--- NOTE | 2025-02-12 13:59 | ED_ITS ---
HPI - Fall 2 General: Chief Complaint: Fall Stated Complaint: right hip pain s/p fall Time Seen by Provider: 02/12/25 13:44 History of Present Illness: 74-year-old female presents to the emerg ency room complaining of right hip pain after a fall. She had a ground-level mechanical fall yesterday at around 1 PM she was not found until this afternoon and almost 24 hours later. Her son and gone to check on her and found her on the ground she did not been able to get up. She is not on any anticoagulants she denies striking her head she just could not get enough strength to stand. She denies chest pain shortness of breath denies neck pain. Associated symptoms-after fall: Denies abdominal pain, chest pain or neck pain Related Data Home Medications ?Medication ?Instructions ?Recorded ?Confirmed lisinopril 20 1 tab PO DAILY 02/12/2505/08 mg-hydrochlorothiazide 12.5 mg tablet meloxicam 15 mg tablet 15 mg PO DAILY 02/12/2505/08 omeprazole 20 mg capsule,delayed 20 mg PO DAILY 02/12/25 release rosuvastatin 10 mg tablet 10 mg PO DAILY 02/12/2505/08 Previous Rx's ?Medication ?Instructions ?Recorded lisinopril 20 mg tablet 20 mg PO DAILY #30 tabs 05/08 Allergies Allergy/AdvReac Type Severity Reaction Status Date / Time No Known Allergies Allergy Verified 02/12/25 13:53 Review of Systems 2 Const: Denies: fever(s) or chills Card: Denies: chest pain Resp: Denies: dyspnea GI: Denies: abdominal pain : Denies: dysuria, urinary frequency or urinary urgency Musc: Reports: joint pain; Denies: neck pain or back pain Skin/Breast: Denies: rash Physical Exam 2 Const: GENERAL APPEARANCE: cooperative ORIENTATION/CONSCIOUSNESS: Yes awake, Yes oriented to person, Yes oriented to place and Yes oriented to time HENMT: COMMON NORMALS: normocephalic, atraumatic and hearing grossly normal bilaterally HEAD & SCALP: normocephalic and atraumatic Resp: COMMON NORMALS: normal respiratory effort, No retractions, No use of accessory muscles and clear to auscultation bilaterally AUSCULTATION: clear to auscultation bilaterally Cardio: COMMON NORMALS: regular rate, regular rhythm and No murmurs present (Cardio) RATE: regular rate RHYTHM: regular rhythm GI: COMMON NORMALS: Soft to palpation and No hepatosplenomegaly present A USCULTATION: Yes normoactive bowel sounds PALPATION: Yes Soft to palpation, No Tenderness to palpation present (GI), No Guarding due to palpation present (GI) and Yes No hepatosplenomegaly present Extremity: COMMON NORMALS: normal to inspection, capillary refill normal, no clubbing, cyanosis or edema, no calf tenderness and no pedal edema Neuro: SENSORIUM/ORIENTATION: Yes oriented to person, Yes oriented to place and Yes oriented to time Skin: COMMON NORMALS: no rashes or lesions noted GENERAL SKIN EXAM: no rashes or lesions noted Course 2 Vital Signs: Vital signs: Vital Signs Temperature 97.8 F 02/12/25 13:44 Pulse Rate 89 02/12/25 17:00 Respiratory Rate 26 H 02/12/25 17:00 Blood Pressure 142/112 02/12/25 17:00 Pulse Oximetry 97 02/12/25 17:00 MDM - Fall Medical Decision Making X-rays did not show any acute fractures or significant degenerative changes chest x-ray was also normal lab test reviewed. No significant findings she is mildly hyponatremic but this is chronic. She is asymptomatic of it at this time. She does have frequent falls at home. Will have her stop her hydrochlorothiazide changed to plain lisinopril. Will have her follow-up with her primary care doctor within a week. Labs and imaging reviewed as found in the chart discussed with patient Medical Records I reviewed the patient's medical records. Lab Data I reviewed the patient's lab results. 02/12/25 14:22 02/12/25 14:22 Radiology Impressions Hip/Pelvis X-Ray 02/12/25 13:52 IMPRESSION: Degenerative changes of the lower spine. No acute fractures identified. Chest X-Ray 02/12/25 13:56 IMPRESSION: No acute abnormality identified. Laboratory Results WBC 7.88 10^3/uL (3.29-11.43) 02/12/25 14:22 RBC 3.84 10^6/uL (3.85-5.65) L 02/12/25 14:22 Hgb 11.20 g/dL (11.27-16.99) L 02/12/25 14:22 Hct 33.7 % (36-47) L 02/12/25 14:22 MCV 87.8 fl (85-98) 02/12/25 14:22 MCH 29.2 pg (27-33) 02/12/25 14:22 MCHC 33.2 g/dL (30-55) 02/12/25 14:22 RDW 13.1 % (12.1-15.1) 02/12/25 14:22 Plt Count 285 10^3/cmm (157-399) 02/12/25 14:22 MPV 8.6 fL (7.4-10.4) 02/12/25 14:22 Neut % (Auto) 80.1 % 02/12/25 14:22 Lymph % (Auto) 11.2 % 02/12/25 14:22 [place] % (Auto) 6.9 % 02/12/25 14:22 Eos % (Auto) 0.5 % 02/12/25 14:22 Baso % (Auto) 0.8 % 02/12/25 14:22 Neut # (Auto) 6.32 10^3/uL (1.8-7.7) 02/12/25 14:22 Lymph # (Auto) 0.9 10^3/uL (0.8-4.8) 02/12/25 14:22 [place] # (Auto) 0.5 10^3/uL (0.2-0.9) 02/12/25 14:22 Eos # (Auto) 0.0 10^3/uL (0.0-0.8) 02/12/25 14:22 Baso # (Auto) 0.1 10^3/uL (0.0-0.1) 02/12/25 14:22 Nucleated RBC % (auto) 0 % 02/12/25 14:22 Nucleated RBCs # 0.0 /100WBC 02/12/25 14:22 Sodium 124 mmol/L (136-145) L 02/12/25 14:22 Potassium 3.9 mmol/L (3.5-5.1) 02/12/25 14:22 Chloride 91 mmol/L (98-107) L 02/12/25 14:22 Carbon Dioxide 23 mmol/L (22-29) 02/12/25 14:22 Anion Gap 13.9 (5-19) 02/12/25 14:22 BUN 5 mg/dL (8-23) L 02/12/25 14:22 Creatinine 0.7 mg/dL (0.5-0.9) 02/12/25 14:22 GFR Calculation Not Reportable 02/12/25 14:22 Glucose 125 mg/dL (65-115) H 02/12/25 14:22 Calculated Osmolality 257 mOsm/kg (285-295) L 02/12/25 14:22 Calcium 9.2 mg/dL (8.5-10.5) 02/12/25 14:22 Total Bilirubin 0.3 mg/dL (0.15-1.2) 02/12/25 14:22 AST 31 U/L (0-32) 02/12/25 14:22 ALT 20 U/L (0-33) 02/12/25 14:22 Alkaline Phosphatase 110 U/L (35-105) H 02/12/25 14:22 Creatine Kinase 176 U/L (26-192) 02/12/25 14:22 Total Protein 6.8 g/dL (6.6-8.7) 02/12/25 14:22 Albumin 3.8 g/dL (3.5-5.2) 02/12/25 14:22 Globulin 3.0 g/dL (1.3-4.6) 02/12/25 14:22 Urine Color Yellow (Yellow) 02/12/25 14:44 Urine Appearance Clear (CLEAR) 02/12/25 14:44 Urine pH 7.5 (5-7) 02/12/25 14:44 Ur Specific [place] 1.006 (1.005-1.030) 02/12/25 14:44 Urine Protein Negative (Negative) 02/12/25 14:44 Urine Glucose (UA) Negative (Normal) 02/12/25 14:44 Urine Ketones Negative (Negative) 02/12/25 14:44 Urine Blood 2+ (Negative) A 02/12/25 14:44 Urine Nitrate Negative (Negative) 02/12/25 14:44 Urine Bilirubin Negative (Negative) 02/12/25 14:44 Urine Urobilinogen 0.2 mg/dL (Negative) 02/12/25 14:44 Ur Leukocyte Esterase Negative (Negative) 02/12/25 14:44 Urine RBC 0-2 /hpf (0-2) 02/12/25 14:44 Urine WBC 0-5 /hpf (0-5) 02/12/25 14:44 Ur Squamous Epith Cells 0-5 /hpf (0-5) 02/12/25 14:44 Amorphous Sediment Not Reportable 02/12/25 14:44 Urine Bacteria None seen /hpf (NONE) 02/12/25 14:44 Hyaline Casts 0.40 /lpf 02/12/25 14:44 All radiology interpretation(s) finalized by discharge Discharge Plan Discharge Patient Disposition: Home Clinical Impression: Frequent falls, Weakness, Chronic hyponatremia Condition: Stable Prescriptions: New lisinopril 20 mg tablet 20 mg PO DAILY Qty: 30 0RF No Action lisinopril-hydrochlorothiazide 20-12.5 mg tablet 1 tab PO DAILY meloxicam 15 mg tablet 15 mg PO DAILY omeprazole 20 mg capsule,delayed release(DR/EC) 20 mg PO DAILY rosuvastatin 10 mg tablet 10 mg PO DAILY Discharge Orders: Discharge ED (Routine); Ordered 02/12/25 Ordered By: David Knowles Referrals: Booker Salinas MD [Primary Care Provider, Family Practice] Discharge Diet: Usual diet Discharge Activity: Increase activity as tolerated Patient Instructions: Opioid Safety, Pain Management, Patient Portal & [place] Instructions Activity Restrictions/Additional Instructions: Thank you for choosing [facility] for your healthcare needs today. It is very important that you follow up as instructed or that you return to the Emergency Department should you have concerns or if your condition changes or worsens in any way. Emergency department visits are focused on emergent conditions, in some cases you may require further evaluation on an outpatient basis. You were seen in the emergency room after a fall. Your laboratory test did not show any acute abnormalities. Your sodium is low but it looks like it is chronically been low. Recommend you change from lisinopril hydrochlorothiazide to plain lisinopril 1 daily. You were given some IV fluids while you are in the emergency room. There is no sign of any acute kidney injury. You were able to ambulate with your walker. Recommend following up your primary care doctor to reevaluate your blood pressure and reconsideration of care needs within the next week. (Please note that included in your discharge packet is information concerning opioid safety and pain management. 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
[2025-02-12 14:36] LABS: Hematocrit 33.7 % (36-47); Hemoglobin 11.20 g/dL (11.27-16.99); Mean Corpuscular HGB Conc 33.2 g/dL (30-55); Mean Corpuscular Hemoglobin 29.2 pg (27-33); Mean Corpuscular Volume 87.8 fl (85-98); Nucleated Red Blood Cells % 0 %; Platelet Count 285 10^3/cmm (157-399); Red Blood Count 3.84 10^6/uL (3.85-5.65); White Blood Count 7.88 10^3/uL (3.29-11.43)
--- NOTE | 2025-02-12 14:41 | ECG_ITS ---
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
[2025-02-12 14:50] LABS: Glucose Urine UA Negative (Normal); Nitrate Urine Negative (Negative); Specific Gravity, Urine 1.006 (1.005-1.030)
[2025-02-12 14:54] LABS: Add Urine Microscopic? YES
[2025-02-12 14:58] LABS: Alanine Aminotransferase 20 U/L (0-33); Albumin Level 3.8 g/dL (3.5-5.2); Alkaline Phosphatase 110 U/L (35-105); Anion Gap 13.9 (5-19); Aspartate Amino Transferase 31 U/L (0-32); Blood Urea Nitrogen 5 mg/dL (8-23); Calcium 9.2 mg/dL (8.5-10.5); Carbon Dioxide 23 mmol/L (22-29); Chloride 91 mmol/L (98-107); Creatinine Clr Calc Pharmacy 62.0758; Globulin 3.0 g/dL (1.3-4.6); Glucose 125 mg/dL (65-115); Osmolality Calculated 257 mOsm/kg (285-295); Potassium 3.9 mmol/L (3.5-5.1); Sodium 124 mmol/L (136-145); Total Protein 6.8 g/dL (6.6-8.7)
[2025-02-12 17:00] VITALS: BP 142/112; PULSE 89; RESP 26; O2SAT 97
== END 2025-02-12 17:00 | disposition home or self-care (01) ==
PROVIDERS: Emergency Provider Family Medicine; PCP Family Medicine
DX: R29.6 Repeated falls (principal); R53.1 Weakness; E87.1 Hypo-osmolality and hyponatremia
CPT/HCPCS: 36415; 71045; 73502; 80053; 81001; 82550; 85025; 93005; 99285; J7030